=== PATIENT | male | born 1965 | race Caucasian/White ===

== ENCOUNTER 2018-05-17 01:36 | Outpatient (CLI) | payer MEDICARE, SELFPAY ==
[2018-05-17 13:13] LABS: HCT 40.6 % (40.0-50.0); HGB 13.6 g/dL (13.5-17.5); Mean Corp. HGB Concentration 33.5 g/dL (32.0-36.0); Mean Corpuscular Hemoglobin 35.6 pg (27.0-33.0); Mean Platelet Volume 10.2 fL (8.0-11.0); Platelet Count 123 x1000/uL (130-400); RBC 3.82 m/cumm (4.50-6.00); RBC Distribution Width 14.4 % (11.8-14.1); White Blood Cell Count 9.57 k/cumm (4.4-10.8)
[2018-05-17 13:29] LABS: Mean Corpuscular Volume 106.3 fL (80-95)
[2018-05-17 13:45] LABS: Iron 102 ug/dL (50-175)
[2018-05-17 14:00] LABS: Ferritin 719 ng/mL (8-388); Magnesium 1.3 mg/dL (1.8-2.4); TSH (W/Ref FT4) 10.53 uIU/mL (0.358-3.74)
[2018-05-17 14:37] LABS: FREE T4 0.83 ng/dL (0.76-1.46)
== END 2018-05-17 01:56 ==
PROVIDERS: PCP Family Medicine; Visit Provider Family Medicine
DX: D64.9 Anemia, unspecified (principal); E03.9 Hypothyroidism, unspecified
CPT/HCPCS: 36415; 85027; 82565; 82728; 83540; 83735; 84439; 84443

== ENCOUNTER 2018-06-20 01:28 | Outpatient (CLI) | payer MEDICARE, SELFPAY ==
[2018-06-20 13:21] LABS: Magnesium 1.6 mg/dL (1.8-2.4)
== END 2018-06-20 01:48 ==
PROVIDERS: PCP Family Medicine; Visit Provider Family Medicine
DX: K21.9 Gastro-esophageal reflux disease without esophagitis (principal)
CPT/HCPCS: 36415; 83735

== ENCOUNTER 2019-01-21 10:08 | Emergency (ER) | payer MEDICARE, SELFPAY ==
[2019-01-21 10:11] VITALS: BP 162/112; PULSE 75; RESP 12; TEMP 36.3; O2SAT 98
[2019-01-21] MEDS: Lidocaine 2% Viscous 15 ML CUP PO (10:53)
--- NOTE | 2019-01-21 11:06 | NUR.NOTE ---
Animal bite form faxed to [facility] Clerk's Office, called the Health Officer Sherine Michel [phone] and left msg.Nursing Note:
--- NOTE | 2019-01-21 11:53 | W.ED.GENAD ---
Discharge Plan Disposition Patient Disposition: HOME Condition: Stable Discharge Details Chief Complaint: AnimalBite Clinical Impression: Dog bite, Laceration of face Primary Care Provider: Elias Mattson ED Provider: Sonja Everett Home Meds and New Rx's Prescriptions: New amoxicillin-pot clavulanate [Augmentin] 875-125 mg tablet 1 tab PO BID Qty: 9 RF: 0 Continued sertraline 100 mg tablet 100 - 200 mg PO DAILY Qty: 135 RF: 3 multivitamin [Daily Vitamin] 1 EACH tablet 1 tab PO DAILY RF: 0 OCUVITE TABLET 1 EACH tablet 1 tab PO DAILY Qty: 90 RF: 4 cholecalciferol (vitamin D3) 50,000 UNIT capsule 50,000 unit PO monthly Qty: 3 RF: 4 thiamine mononitrate (vit B1) 100 MG tablet 100 mg PO DAILY Qty: 90 RF: 3 omeprazole 40 mg capsule,delayed release(DR/EC) 40 mg PO DAILY Qty: 90 RF: 0 magnesium oxide 400 mg (241.3 mg magnesium) tablet 400 mg PO BID Qty: 180 RF: 3 levothyroxine 125 mcg tablet 125 mcg PO DAILY Qty: 90 RF: 0 Phospha 250 Neutral 250 MG tablet 250 mg PO QID RF: 0 Discharge Instructions Instructions: Amoxicillin/Clavulanate Potassium (By mouth), Animal Bite (ED), Facial Laceration (ED) Additional Instructions: Please return immediately to the emergency department if you develop any new or worsening symptoms or if you become otherwise concerned. It is extremely important that you call as soon as possible to make an appointment to be seen in follow-up for this visit by your primary care doctor. You will need to have your stitches removed in 5 days. You can have this done at your primary care doctor's office, or if you are unable to see your primary care doctor you may return to the emergency department and we will remove your stitches. Referrals: Elias Mattson [Primary Care Provider] - Medical Decision Making Guy Marrero is a 53-year-old man with a history of alcohol use disorder, BPH, hypothyroidism presented to the emergency department 18 hours after sustaining provoked dog bite to right lower lip from vaccinated pet beagle. On exam patient with stellate laceration to the right lower lip at the [place] border, scant oozing, wound is not through and through. Exam is otherwise benign. Concern for complicated laceration at the [place] border, now more than 12 hours from time of injury. Concern for significant risk of scarring and infection. I had a lengthy discussion with the patient regarding improved outcomes were patient to see plastic surgeon at another facility and explained the risks of worse cosmetic outcome and infection. Patient verbalizes understanding of the risks of having wound repaired here at [facility], and adamantly declines consultation with plastic surgery for transfer to another facility. Patient states I just want this done as soon as possible. Also concern for possible metabolic/lyte derangement given that patient has been off his medications including his thyroid medication and magnesium since August, I recommended IV placement and blood draw. Patient refuses blood draw or IV placement, states that he plans to see Dr. Mattson within the next 1 to 2 weeks to get started on his medications again and have his blood drawn at that time. I explained the risks of not undergoing further evaluation here including , permanent disability, patient verbalized understanding the risks and continues to refuse further testing. Right mental block performed. Wound irrigated copiously under pressure. Laceration repaired without complication, please see procedure note. Patient given Augmentin. I had a lengthy discussion with the patient regarding wound care and home care, return to emergency department precautions including red flags for which to return to the emergency department, and importance of outpatient follow-up with his primary care doctor for a general visit in addition to having his stitches removed in 5 days. Patient verbalized understanding of the plan and was amenable. All questions were answered. Patient was discharged home with clear plan for outpatient follow-up. Medical Records Medical records reviewed: Yes I reviewed the patient's medical records. HPI General Mode of arrival: ambulatory. Date/Time Provider Initiated Documentation: 01/21/19 10:14. Limitations to Documentation: no limitations. Information obtained by: patient, RN notes reviewed and old records reviewed. HPI Narrative: Guy Marrero is a 53 y/o man with history of hypothyroidism, BPH, alcohol use disorder presenting to the emergency department with dog bite. Patient is accompanied by his friend who is the sr[employer] system administrator of the dog. They state that patient's friend owns a 15-year-old beagle who has very poor eyesight. They state that patient was laying on the ground with the beagle, when the vehicle became startled and bit the patient in his lower lip. This occurred at approximately 9:00 last night, and now 13 hours ago. Patient did not seek care at the time, but was encouraged to come into the emergency department by his friend because wound was continuing to ooze blood. Patient reports that he had no other injury. Patient's friend reports that dog is vaccinated. Patient reports pain in his lower lip at the site of the wound, and denies any other symptoms. Was previously in his usual state of health. Patient reports that his last tetanus shot was within the past 10 years. Patient notes that he has not been taking any of his medications since August 2018, but he plans to see his primary care doctor, Dr. Mattson, within the next week or 2 and get restarted on his medications. Related Data Home Medications Medication Instructions Recorded Confirmed multivitamin [Daily Vitamin] 1 tab PO DAILY 07/03/13 05/28/18 Phospha 250 Neutral 250 mg PO QID tab 11/07/16 05/28/18 cholecalciferol (vitamin D3) 50,000 unit PO monthly #3 01/17/17 05/28/18 thiamine mononitrate (vit B1) 100 mg PO DAILY #90 tab 01/17/17 05/28/18 omeprazole 40 mg capsule,delayed 40 mg PO DAILY #90 tab-cap 05/01/18 05/28/18 release levothyroxine 125 mcg tablet 125 mcg PO DAILY #90 tab-cap 05/18/18 01/21/19 magnesium oxide 400 mg (241.3 mg 400 mg PO BID #180 tab 05/18/18 01/21/19 magnesium) tablet sertraline 100 mg tablet 100 - 200 mg PO DAILY #135 tab-cap 05/28/18 01/21/19 amoxicillin-pot clavulanate 1 tab PO BID #9 tab 01/21/19 [Augmentin] Previous Rx's Medication Instructions Recorded Phospha 250 Neutral 250 mg PO QID tab 11/07/16 thiamine mononitrate (vit B1) 100 mg PO DAILY #90 tab 01/17/17 omeprazole 40 mg capsule,delayed 40 mg PO DAILY #90 tab-cap 05/01/18 release levothyroxine 125 mcg tablet 125 mcg PO DAILY #90 tab-cap 05/18/18 magnesium oxide 400 mg (241.3 mg 400 mg PO BID #180 tab 05/18/18 magnesium) tablet sertraline 100 mg tablet 100 - 200 mg PO DAILY #135 tab-cap 05/28/18 amoxicillin-pot clavulanate 1 tab PO BID #9 tab 01/21/19 [Augmentin] Allergies Allergy/AdvReac Type Severity Reaction Status Date / Time No Known Allergies Allergy Unverified 01/21/19 10:17 General Stated Complaint: AnimalBite JALIL: 3 Review of Systems Narrative: Constitutional: denies fevers Eyes: denies eye pain ENT: denies facial pain, dental pain, sore throat Cardiovascular: denies chest pain Respiratory: denies SOB, cough GI: denies abdominal pain, vomiting, diarrhea : denies flank pain MSK: denies back pain, neck pain, arthralgias, myalgias Skin: denies rash, reports wound to right lower lip as per HPI Neuro: denies headaches, numbness PFSH Surgical History (Updated 09/24/18 @ 12:35 by Michele Stinson) Repair, Tendon or Muscle (~2005) LEFT FINGER Family History Mother Diabetes Hyperlipidemia Father Personal history of malignant neoplasm Throat Sister Multiple sclerosis Brother No problems noted. Grandfather Heart disease Grandmother No problems noted. Social History Smoking/Tobacco Use Status: Current-Occasional Tobacco Type: cigarettes Alcohol Intake: current Alcohol Intake frequency: 0-2 drinks per day Alcohol type: hard liquor Drug use: Never Substance use type: does not use Do you feel safe at home: Yes Do you feel safe in your relationship?: Yes Exam Narrative Exam Narrative: Constitutional: well and [id number], pleasant, conversing normally HENT: head atraumatic/normocephalic/normal inspection, mucous membranes moist. Stellate 3 cm laceration to the right lip with center of laceration falling at the [place]mil[place] border. No apparent contamination, deep structures intact. Inner mucosa normal, wound is not through and through. No intraoral lesion, normal examination of the oropharynx. No bony tenderness of the mandible or maxilla. Dentition intact. Eyes: conjunctiva normal, sclera normal, pupils 3mm b/l Neck: no stridor, normal ROM, trachea midline Resp: normal work of breathing, LCTAB Cardio: normal rate, normal rhythm, no murmur appreciated Skin: warm, dry, normal color, no rash Neuro: alert, not altered, grossly non-focal, normal tone Ext: no edema, moving all extremities equally. Psych: normal mood, normal affect, normal behavior Course Vital Signs Vital signs: Vital Signs Temperature 36.3 C L 01/21/19 10:11 Pulse 75 01/21/19 10:11 Respiratory Rate 12 01/21/19 10:11 Blood Pressure 162/112 H 01/21/19 10:11 Pulse Oximetry 98 01/21/19 10:11 Temperature 36.3 C L 01/21/19 10:11 Temperature Source Temporal Artery Scan 01/21/19 10:11 Pulse 75 01/21/19 10:11 Respiratory Rate 12 01/21/19 10:11 Respiratory Effort Non-Labored 01/21/19 10:13 Blood Pressure 162/112 H 01/21/19 10:11 Blood Pressure Position Sitting 01/21/19 10:11 Pulse Oximetry 98 01/21/19 10:11 Oxygen Delivery Method Room Air 01/21/19 10:11 Oxygen Flow Rate 0 01/21/19 10:11 Pain Level 8 01/21/19 10:11 Procedures Laceration Laceration 1: Site: lip Side (If applicable): right Size (cm): 3 Description: stellate Depth: simple, single layer Local Anesthetic: Lidocaine 1% Amount of anesthesia used (mL): 0.5 Pre-repair: wound explored, irrigated extensively (Wound irrigated copiously under pressure, no apparent contamination) and deep structures intact Skin layer closed with: other (Prolene) Size (cm): 5-0 Number of sutures: 6 Technique: simple, interrupted Nerve Block Nerve Block 1: Time out performed: Yes Local Anesthetic: Lidocaine 1% Amount of anesthesia used (mL): 3 Side: right Intraoral Nerve Block: mental Procedure Successful: Yes Patient Tolerated Procedure: well Complications: inadequate anesthesia Additional Comments: Patient required 0.5 cc additional lidocaine into lower wound flap to achieve adequate anesthesia
[2019-01-21] MEDS: Amoxicillin 875/Clav. 125 TAB PO (11:54)
[2019-01-21] MEDS: Bacitracin 30 GM TUBE TP (11:56)
== END 2019-01-21 12:02 | disposition home or self-care (01) ==
LOC: ER 11:59
PROVIDERS: Emergency Provider Student in an Organized Health Care Education/Training Program; PCP Family Medicine
DX: S01.551A Open bite of lip, initial encounter (principal); W54.0XXA Bitten by dog, initial encounter; Z91.128 Patient's intentional underdosing of medication regimen for other reason
CPT/HCPCS: 12013; 64402

== ENCOUNTER 2019-01-27 09:22 | Emergency (ER) | payer MEDICARE, SELFPAY ==
[2019-01-27 09:26] VITALS: BP 156/108; PULSE 74; RESP 16; TEMP 36.2; O2SAT 98
--- NOTE | 2019-01-27 10:19 | ED.GENADUL_ITS ---
Discharge Plan Disposition Patient Disposition: HOME Condition: Improving Discharge Details Chief Complaint: SutureRem Clinical Impression: Encounter for removal of sutures Primary Care Provider: Elias Mattson ED Provider: Caesar Liu Home Meds and New Rx's Prescriptions: No Action sertraline 100 mg tablet 100 - 200 mg PO DAILY Qty: 135 RF: 3 OCUVITE TABLET 1 EACH tablet 1 tab PO DAILY Qty: 90 RF: 4 levothyroxine 125 mcg tablet 125 mcg PO DAILY Qty: 90 RF: 0 Phospha 250 Neutral 250 MG tablet 250 mg PO QID RF: 0 Discharge Instructions Additional Instructions: 1. Drink plenty of fluids. 2. Continue all medications as prescribed. 3. Acetaminophen 1000mg every 4 hours (up to 5 time a day) and/or ibuprofen 600mg every 6 hours as needed for fever or pain. 4. Continue applying bacitracin to wound edges. 5. Follow-up with your doctor for evaluation of your blood pressure. Return to the Emergency Department (ED) if your condition worsens, does not improve as expected, or for ANY other concerns. Specifically, return if you have new or uncontrolled pain, worsening fever, difficulty breathing, vomiting, or are unable to drink fluids. Medical Decision Making 51-year-old gentleman presents for wound evaluation and suture removal. Wound subjectively improved in terms of pain and soft tissue swelling according to patient and his partner. Exam significant for well approximated wound edges with no evidence of acute infection. Sutures removed without complication. Patient has had elevated blood pressure during both of his ED visits and has been noncompliant with his levothyroxine. Discharge the prior outpatient follow-up with his PCP. Given usual and customary return instructions prior to discharge. HPI 54-year-old gent with a history of hypothyroidism and tobacco use. Is noncompliant with his levothyroxine. Presents for evaluation of a recent wound repair and suture removal. was presented here on 01/21 after sustaining a s tellate laceration to his right lower lip from a dog bite. His wound was repaired without complication and he has been applying bacitracin to his wound edges daily. He notes improved pain and reduced swelling over the past 5 days. He denies any fever/chills, hypopharyngeal swelling, or other constitutional complaints. Of note, he had measured hypertension during his last ED visit had a somewhat elevated blood pressure today. Denies chest pain, palpitations, dyspnea, exertional fatigue, or lower extremity edema. General Date/Time Provider Initiated Documentation: 01/27/19 09:42 . Related Data Home Medications Medication Instructions Recorded Confirmed Phospha 250 Neutral 250 mg PO QID tab 11/07/16 01/27/19 levothyroxine 125 mcg tablet 125 mcg PO DAILY #90 tab-cap 05/18/18 01/27/19 sertraline 100 mg tablet 100 - 200 mg PO DAILY #135 tab-cap 05/28/18 01/27/19 Previous Rx's Medication Instructions Recorded Phospha 250 Neutral 250 mg PO QID tab 11/07/16 levothyroxine 125 mcg tablet 125 mcg PO DAILY #90 tab-cap 05/18/18 sertraline 100 mg tablet 100 - 200 mg PO DAILY #135 tab-cap 05/28/18 Allergies Allergy/AdvReac Type Severity Reaction Status Date / Time No Known Allergies Allergy Unverified 01/27/19 09:31 General Stated Complaint: SutureRem JALIL: 5 Review of Systems All systems reviewed & are unremarkable except as noted in HPI and below PFSH Surgical History Repair, Tendon or Muscle (~2005) LEFT FINGER Family History Mother Diabetes Hyperlipidemia Father Personal history of malignant neoplasm Throat Sister Multiple sclerosis Brother No problems noted. Grandfather Heart disease Grandmother No problems noted. Social History Smoking/Tobacco Use Status: Current-Occasional Tobacco Type: cigarettes Alcohol Intake: current Alcohol Intake frequency: 0-2 drinks per day Alcohol type: hard liquor Drug use: Never Substance use type: does not use Do you feel safe at home: Yes Do you feel safe in your relationship?: Yes Exam Narrative Exam Narrative: Nursing note and vital signs have been reviewed and noted. GENERAL: alert, active, no acute distress, well -hydrated, well-nourished HEENT: atraumatic/normocephalic, PERRLA, EOMI, conjunctiva clear, external ears/canals normal, nasal mucosa normal NECK: supple, full range of motion CARDIOVASCULAR: nl pulses, no edema PULMONARY: nl effort, no audible wheezing or stridor ABDOMEN: non-distended EXTREMITY: normal muscle tone, all joints with FROM, no deformity NUERO: normal mentation, moving all extremities, normal stance and gait, PSYCH: alert and oriented SKIN: Stellate laceration to the left lower lip through the [place]mil[place] border with well approximated wound edges. There is mild soft tissue swelling with minimal tenderness. 6 simple interrupted Prolene sutures are in place Course Vital Signs Vital signs: Vital Signs Temperature 97.2 F L 01/27/19 09:26 Pulse 74 01/27/19 09:26 Respiratory Rate 16 01/27/19 09:26 Blood Pressure 156/108 H 01/27/19 09:26 Pulse Oximetry 98 01/27/19 09:26 Temperature 97.2 F L 01/27/19 09:26 Temperature Source Skin 01/27/19 09:26 Pulse 74 01/27/19 09:26 Respiratory Rate 16 01/27/19 09:26 Respiratory Effort Non-Labored 01/27/19 09:30 Blood Pressure 156/108 H 01/27/19 09:26 Blood Pressure Position Sitting 01/27/19 09:26 Pulse Oximetry 98 01/27/19 09:26 Oxygen Delivery Method Room Air 01/27/19 09:26 Oxygen Flow Rate 0 01/27/19 09:26 Comment 01/27/19 09:26 Procedures Other Description: Suture removal. 6 simple interrupted Prolene sutures removed using forceps, scissors, and a scalpel without complication. No significant bleeding, discharge, or wound dehiscence associated with the procedure.
== END 2019-01-27 09:47 | disposition home or self-care (01) ==
PROVIDERS: Emergency Provider Emergency Medicine; PCP Family Medicine
DX: S01.01XD Laceration without foreign body of scalp, subsequent encounter (principal); W54.0XXD Bitten by dog, subsequent encounter; Z48.02 Encounter for removal of sutures

== ENCOUNTER 2020-01-16 01:52 | Outpatient (CLI) | payer MEDICARE, SELFPAY ==
[2020-01-16 13:12] LABS: Calculated LDL 68 mg/dL (<100); Cholesterol 182 mg/dL (<200); HDL Cholesterol 99 mg/dL (40-60); Magnesium 1.4 mg/dL (1.8-2.4); TSH (W/Ref FT4) 12.36 uIU/mL (0.36-3.74); Triglyceride 75 mg/dL (<150)
[2020-01-16 13:36] LABS: FREE T4 0.85 ng/dL (0.76-1.46)
== END 2020-01-16 02:12 ==
PROVIDERS: PCP Family Medicine; Visit Provider Family Medicine
DX: E03.9 Hypothyroidism, unspecified (principal); E83.42 Hypomagnesemia; E78.5 Hyperlipidemia, unspecified
CPT/HCPCS: 36415; 80061; 83735; 84439; 84443

== ENCOUNTER 2020-05-20 04:04 | Outpatient (CLI) | payer MEDICARE, SELFPAY ==
[2020-05-20 10:13] LABS: HCT 37.6 % (40.0-50.0); HGB 12.7 g/dL (13.5-17.5); MCHC 33.8 % (32.0-36.0); MCV 106.5 fL (80-95); MPV 9.1 fL (8.0-11.0); RBC 3.53 10^6/uL (4.36-5.78); RDW-SD 54.3 fL; WBC 7.35 10^3/uL (4.4-10.8)
[2020-05-20 10:37] LABS: Platelet Count 99 10^3/uL (130-400)
[2020-05-20 10:56] LABS: ALT 66 U/L (16-63); AST 175 U/L (15-37); Albumin 4.1 g/dL (3.4-5.0); Alkaline Phosphatase 83 U/L (46-116); Anion Gap 13.8 mmol/L (3-11); BUN 12 mg/dL (7-18); Bilirubin, Total 0.7 mg/dL (0.2-1.0); CO2 26.2 mmol/L (21.0-32.0); CREATININE 1.1 mg/dL (0.70-1.30); Calcium 8.9 mg/dL (8.5-10.1); Chloride 101 mmol/L (98-107); Glucose 89 mg/dL (74-106); Potassium 3.9 mmol/L (3.5-5.1); Sodium 141 mmol/L (136-145); Total Protein 8.6 g/dL (6.4-8.2)
== END 2020-05-20 04:05 | disposition home or self-care (01) ==
LOC: LBO 04:04
PROVIDERS: PCP Family Medicine; Visit Provider Family Medicine
DX: D64.9 Anemia, unspecified (principal); R10.9 Unspecified abdominal pain
CPT/HCPCS: 36415; 80053; 85027

== ENCOUNTER 2020-05-21 09:29 | Outpatient (REF) | payer MEDICARE, SELFPAY ==
[2020-05-22 09:00] LABS: GGT 567 U/L (15-85); Magnesium 1.5 mg/dL (1.8-2.4)
[2020-05-24 09:59] LABS: PSA, Screening 0.8 ng/mL (0.0-3.5)
== END 2020-05-21 09:30 | disposition home or self-care (01) ==
LOC: LBN 09:29
PROVIDERS: PCP Family Medicine; Visit Provider Family Medicine
DX: E83.42 Hypomagnesemia (principal); F10.10 Alcohol abuse, uncomplicated; N40.1 Benign prostatic hyperplasia with lower urinary tract symptoms; Z12.5 Encounter for screening for malignant neoplasm of prostate
CPT/HCPCS: 84153; 82977; 83735

== ENCOUNTER 2020-09-01 18:32 | Inpatient (IN) | payer MEDICARE, SELFPAY ==
[2020-09-01] VITALS (70 sets, daily range): BP systolic 53–92; BP diastolic 37–65; PULSE 57–92; RESP 13–27; TEMP 36–36.1; O2SAT 93–100
--- NOTE | 2020-09-01 18:34 | W.ED.GENAD ---
Discharge Plan Disposition Patient Disposition: [facility] INPATIENT Condition: Serious Discharge Details Clinical Impression: Hypotension, Dehydration, Alcohol abuse, Acute kidney injury, Hypokalemia Admit Date/Time: 09/01/20 21:37 Admit Provider: Chino Bravo Attending Provider: Chino Bravo Primary Care Provider: Elias Mattson. ED Provider: Kavya Park Discharge Data Discharge Date/Time-TO BE ENTERED AT DEPARTURE: 09/01/20 23:05 Medical Decision Making 1839 -- 55-year-old male with a history of chronic alcohol abuse presents for generalized weakness, dizziness and lack of appetite for the past 5 days. Last alcohol use yesterday. Had been drinking up to 10 whiskeys daily. Blood pressure 83/53. He appears generally unwell but nontoxic. Differential diagnosis includes sepsis, dehydration, electrolyte abnormality, pneumonia, UTI. Will place IV, bolus IV fluids, screening labs, CT chest abdomen pelvis to rule out mass or other acute process and obtain urinalysis. 2229 -- Labs and imaging reviewed. White blood cell count 21. Hemoglobin 8.6, he has been as low as 2.4 in 2017. Guaiac done at bedside which noted brown stool but is guaiac positive. MCV and and Ch elevated, c/w macrocytic anemia which may be associated with etoh. Normal lactate 1.4. Potassium 2.9, will replete. Cr 2.4, increased fromn 1.1. TSH 9. Free T4 normal at 1. Alcohol level negative. CT chest notes 5x3mm LLL nodule but no acute disease. CT abdomen/pelvis negative for acute disease. Case discussed with hospitalist accepts patient for admission. 2219 --Patient has continued to have low blood pressure readings, with systolic as low as 50s to 60s. Blood pressure now 92/63. He appears to be fluid responsive. Will consider central line placement for pressors if systolic blood pressure remains in 70s to low 80s. Urinalysis negative for infection. As there does not appear to be an acute source at this time, do not see an indication for antibiotics. Rapid Covid pending. 2349 --BP 89/57 before transfer to the floor. Medical Records Medical records reviewed: Yes I reviewed the patient's medical records. Imaging Data Radiologic Study: Radiologist's impression: 09/01/20 21:47 Blood Blood Culture - Pending 09/01/20 21:24 Blood Blood Culture - Pending Laboratory Tests Range/Units 09/01/20 09/01/20 09/01/20 18:54 18:54 18:54 WBC (4.4-10.8) 10^3/uL 21.64 H RBC (4.36-5.78) 10^6/uL 2.43 L Hgb (13.5-17.5) g/dL 8.6 L Hct (40.0-50.0) % 25.0 L MCV (80-95) fL 102.9 H MCH (27.0-33.0) pg 35.4 H MCHC (32.0-36.0) % 34.4 RDW (11.8-14.1) % 14.8 H Plt Count (130-400) 10^3/uL 283 MPV (8.0-11.0) fL 10.8 Immature Gran % 1.3 Neutrophils % 80.2 Lymphocytes % 9.1 Monocytes % 7.5 Eosinophils % 1.2 Basophils % 0.7 Nucleated RBC % % 0 Absolute Neutrophils (1.2-6.7) 10^3/uL 17.36 H Absolute Lymphocytes (1.2-3.4) 10^3/uL 1.97 Absolute Monocytes (0.1-0.8) 10^3/uL 1.62 H Absolute Eosinophils (0.0-0.7) 10^3/uL 0.26 Absolute Basophils (0.0-0.2) 10^3/uL 0.15 VBG Lactate (0.6-1.4) mmol/L Sodium (136-145) mmol/L 132 L Potassium (3.5-5.1) mmol/L 2.9 L Chloride (98-107) mmol/L 91 L Carbon Dioxide (21.0-32.0) mmol/L 23.0 Anion Gap (3-11) mmol/L 18.0 H BUN (7-18) mg/dL 32 H Creatinine (0.70-1.30) mg/dL 2.4 H Estimated GFR/1.73 m2 (mL/min/1.73m2) 28.04 Glucose (74-106) mg/dL 139 H Calcium (8.5-10.1) mg/dL 9.6 Total Bilirubin (0.2-1.0) mg/dL 0.9 AST (15-37) U/L 71 H ALT (16-63) U/L 25 Alkaline Phosphatase (46-116) U/L 82 Total Protein (6.4-8.2) g/dL 8.3 H Albumin (3.4-5.0) g/dL 3.8 Lipase (73-393) U/L 155 Ethyl Alcohol (<3) mg/dL < 3.0 Range/Units 09/01/20 21:47 WBC (4.4-10.8) 10^3/uL RBC (4.36-5.78) 10^6/uL Hgb (13.5-17.5) g/dL Hct (40.0-50.0) % MCV (80-95) fL MCH (27.0-33.0) pg MCHC (32.0-36.0) % RDW (11.8-14.1) % Plt Count (130-400) 10^3/uL MPV (8.0-11.0) fL Immature Gran % Neutrophils % Lymphocytes % Monocytes % Eosinophils % Basophils % Nucleated RBC % % Absolute Neutrophils (1.2-6.7) 10^3/uL Absolute Lymphocytes (1.2-3.4) 10^3/uL Absolute Monocytes (0.1-0.8) 10^3/uL Absolute Eosinophils (0.0-0.7) 10^3/uL Absolute Basophils (0.0-0.2) 10^3/uL VBG Lactate (0.6-1.4) mmol/L 1.4 Sodium (136-145) mmol/L Potassium (3.5-5.1) mmol/L Chloride (98-107) mmol/L Carbon Dioxide (21.0-32.0) mmol/L Anion Gap (3-11) mmol/L BUN (7-18) mg/dL Creatinine (0.70-1.30) mg/dL Estimated GFR/1.73 m2 (mL/min/1.73m2) Glucose (74-106) mg/dL Calcium (8.5-10.1) mg/dL Total Bilirubin (0.2-1.0) mg/dL AST (15-37) U/L ALT (16-63) U/L Alkaline Phosphatase (46-116) U/L Total Protein (6.4-8.2) g/dL Albumin (3.4-5.0) g/dL Lipase (73-393) U/L Ethyl Alcohol (<3) mg/dL CT Chest Without Contrast; Diagnostic Exam date and time: 09/01/2020 7:51 PM Age: 55 years old Clinical indication: Other: Generalized weakness, dehydration, R/O pna, mass; Additional info: PT had difficulty holding breath TECHNIQUE: Imaging protocol: Diagnostic computed tomography of the chest without contrast. Radiation optimization: All CT scans at this facility use at least one of these dose optimization techniques: automated exposure control; mA and/or kV adjustment per patient size (includes targeted exams where dose is matched to clinical indication); or iterative reconstruction. COMPARISON: CR CHEST 2 VIEWS PA,LAT 11/15/2016 8:52 AM FINDINGS: Lungs: There is mild central peribronchial thickening. There is no bronchiectasis or bronchiolectasis. There is mild mucus within the central airways. There are scattered regions of mild tree-in-bud opacities suggesting mild infectious small airways disease. There is a 5 x 3 mm left lower lobe nodule on image 470, series 6. There are scattered regions of mild pleuroparenchymal scarring. Incidentally noted is a tracheal bronchus on the right supplying part of the right upper lobe. Pleural spaces: There are no pleural effusions present. Heart: Heart size is normal. There is no pericardial effusion. Aorta: There is mild atherosclerotic calcification of the thoracic aorta without aneurysm formation. Lymph nodes: Unremarkable. No enlarged lymph nodes. Bones/joints: Unremarkable. No acute fracture. Soft tissues: Unremarkable. IMPRESSION: 1. Findings of mild airways disease, as described above, which may be chronic. 2. 5 x 3 mm left lower lobe nodule, indeterminate. For patients at low risk (minimal or absent history of smoking and of other known risk factors), no routine follow-up is indicated. For patients at high risk (history of smoking or of other known risk factors), consider optional CT Chest at 12 months. (Reference: [facility]) CT Abdomen And Pelvis Without Contrast Exam date and time: 09/01/2020 7:51 PM Age: 55 years old Clinical indication: Other: Generalized weakness, dehydration, R/O pna, mass; Additional info: PT had difficulty holding breath TECHNIQUE: Imaging protocol: Computed tomography of the abdomen and pelvis without contrast. Radiation optimization: All CT scans at this facility use at least one of these dose optimization techniques: automated exposure control; mA and/or kV adjustment per patient size (includes targeted exams where dose is matched to clinical indication); or iterative reconstruction. COMPARISON: CR CHEST 2 VIEWS PA,LAT 11/15/2016 8:52 AM FINDINGS: Liver: Normal. No mass. Gallbladder and bile ducts: There are tiny dependent hyperdensities within the gallbladder consistent with tiny gallstones. There is no clear evidence for acute cholecystitis. There is no biliary ductal dilatation. Pancreas: The pancreas is moderately atrophic but appears otherwise unremarkable without focal lesion or evidence of acute inflammation. Spleen: Normal. No splenomegaly. Adrenal glands: Normal. No mass. Kidneys and ureters: No renal or ureteral stones are identified. There is no hydronephrosis or hydroureter. Stomach and bowel: There are few prominent air-filled loops of small bowel without transition point, which may represent ileus. There is no evidence for bowel obstruction. There is no evidence for bowel inflammation. Appendix: No evidence of appendicitis. Intraperitoneal space: Unremarkable. No free air. No significant fluid collection. Vasculature: The aorta and iliac arteries demonstrate moderate atherosclerotic calcification without aneurysm formation. Lymph nodes: Unremarkable. No enlarged lymph nodes. Urinary bladder: No bladder stones are identified. Reproductive: Unremarkable as visualized. Bones/joints: There is moderate degenerative disc disease at L4-L5 with more mild spondylosis at multiple lower thoracic and upper lumbar levels. There is moderate facet arthrosis of the lower lumbar spine. There is bilateral spondylolysis at L5-S1 with grade 1 anterolisthesis at this level. There are multiple mild anterior wedge compression deformities of lower thoracic and upper lumbar vertebra which appear chronic. Soft tissues: Unremarkable. IMPRESSION: 1. No acute process within the abdomen or pelvis identified. 2. No masses or adenopathy. 3. Tiny gallstones. No clear evidence for acute cholecystitis. If this is clinically suspected, abdominal ultrasound could be obtained. Lab Data Lab results reviewed: Yes I reviewed the patient's lab results. HPI General Mode of arrival: ambulatory. Date/Time Provider Initiated Documentation: 09/01/20 18:33. Limitations to Documentation: no limitations. Information obtained by: patient. HPI Narrative: Patient is a 55-year-old male who presents to the ED with a complaint of generalized weakness, poor appetite, dizziness for the past 5 days. Patient states he has been drinking 10 whiskeys daily up until a few days ago. He states his last alcoholic drink was yesterday. He states he has been able to ambulate on his own but feels very weak. He denies any fever, headache, chest pain, shortness of breath, abdominal pain, nausea, vomiting, diarrhea, urinary symptoms. Related Data Home Medications Medication Instructions Recorded Confirmed levothyroxine 125 mcg tablet 125 mcg PO DAILY #90 tab-cap 05/18/18 09/01/20 sertraline 100 mg tablet 100 mg PO DAILY #90 tab-cap 01/09/20 09/01/20 vitamin E 200 unit capsule 200 unit PO DAILY #90 cap 01/09/20 09/01/20 multivitamin 1 tab PO DAILY 02/27/20 09/01/20 Previous Rx's Medication Instructions Recorded levothyroxine 125 mcg tablet 125 mcg PO DAILY #90 tab-cap 05/18/18 sertraline 100 mg tablet 100 mg PO DAILY #90 tab-cap 01/09/20 vitamin E 200 unit capsule 200 unit PO DAILY #90 cap 01/09/20 Allergies Allergy/AdvReac Type Severity Reaction Status Date / Time No Known Allergies Allergy Verified 09/01/20 18:48 General JALIL: 5 Review of Systems All systems reviewed & are unremarkable except as noted in HPI and below Constitutional Constitutional: Reports as per HPI, Denies chills, Reports fatigue, Denies fever(s) and Reports poor appetite Eyes Eyes: Denies blurry vision ENT Ears, Nose, Mouth, and Throat: Denies dizziness, Denies sore throat and Denies throat swelling Cardiovascular Cardiovascular: Denies chest pain and Denies dyspnea Respiratory Respiratory: Denies cough and Denies dyspnea Gastrointestinal Gastrointestinal: Denies abdominal pain, Denies diarrhea and Denies vomiting Genitourinary Genitourinary: Denies hematuria and Denies dysuria Musculoskeletal Musculoskeletal: Denies back pain and Denies numbness Integumentary/Breasts Skin/Breast: Denies lesions and Denies rash Neurologic Neurologic: Denies dizziness, Denies localized weakness and Denies numbness Endocrine Endocrine: Reports fatigue Allergic/Immunologic Allergic/Immunologic: Denies throat swelling [facility] Medical History Alcohol abuse Anemia Depression Essential hypertension Hypothyroidism (11/15/12) Optic neuropathy Smoker Surgical History Repair, Tendon or Muscle (~2005) LEFT FINGER Family History Mother Diabetes Hyperlipidemia Father Personal history of malignant neoplasm Throat Sister Multiple sclerosis Brother No problems noted. Grandfather Heart disease Grandmother No problems noted. Social History Smoking/Tobacco Use Status: Current-Occasional Tobacco Type: cigarettes Years smoked: 35 Smoking risk assessment performed?: Yes Alcohol Intake: current Alcohol Intake frequency: 0-2 drinks per day Alcohol type: hard liquor Drug use: Never Substance use type: does not use Do you feel safe at home: Yes Do you feel safe in your relationship?: Yes Exam Const General: cooperative, no acute distress and ill appearing chronically Orientation: alert, awake and oriented x3 HENMT Head: normal to inspection Face and sinus: normal facial exam Eyes General: appearance normal, both eyes and all related structures EOM: EOM intact bilaterally Neck Neck: normal visual inspection and No submandibular swelling Lymphatic: no lymphadenopathy noted Chest Chest: normal inspection of the chest and no tenderness Resp Effort & Inspection: normal respiratory effort and able to speak in complete sentences Auscultation: clear to auscultation bilaterally Cardio Rate: regular rate Rhythm: regular rhythm GI Inspection: normal to inspection Palpation: soft, not firm, not rigid and nontender Auscultation: normal bowel sounds Skin General skin exam: no rashes or lesions noted Neuro General: patient alert, patient awake and patient oriented x3 Cognition: normal cognition Speech: speech normal Motor: muscle tone normal throughout Sensory Exam: no sensory deficits noted Extrem General: normal to inspection, full ROM, capillary refill normal, no calf tenderness bilaterally and no edema Psych Appearance: grossly normal Mental Status: mental status grossly normal Speech and Movement: speech and movement normal Affect: normal affect Critical Care Time Critical Care Time Critical Care Time: Yes Total Critical Care Time: 90 Attestation: I spent 90 minutes of critical care time with this patient. This does not include time spent on separately reported billable procedures.
--- NOTE | 2020-09-01 18:45 | RT.EKG_ITS ---
APPROVED REPORT Exam: Resting ECG Reason for Exam: unwell Patient Location: E HR:97 bpm ECG Measurements Heart Rate 97 AXIS OR 165 P 148 QRSd 98 QRS 113 QT 403 T 10 QTc 513 Conclusion Sinus or ectopic atrial rhythm...P axis (-45,135) Right axis deviation...QRS axis (100,269) Prolonged QT interval...QTc >500mS. No STEMI. I have reviewed and interpreted ECG and agree with software generated interpretation.
[2020-09-01] MEDS: Normal Saline 1,000 ML 1000 ML IV ×3 (19:12→20:08)
[2020-09-01 19:20] LABS: Abs Immature Grans 0.28 10^3/uL (0.0-0.06); Absolute Lymphocyte Count 1.97 10^3/uL (1.2-3.4); Absolute Monocyte Count 1.62 10^3/uL (0.1-0.8); Basophils % 0.7; Eosinophils % 1.2; HGB 8.6 g/dL (13.5-17.5); Immature Grans % 1.3; Lymphocytes % 9.1; MCH 35.4 pg (27.0-33.0); MCHC 34.4 % (32.0-36.0); MCV 102.9 fL (80-95); MPV 10.8 fL (8.0-11.0); Monocytes % 7.5; Neutrophils % 80.2; Nucleated RBC 0 %; Platelet Count 283 10^3/uL (130-400); RBC 2.43 10^6/uL (4.36-5.78); RDW 14.8 % (11.8-14.1); RDW-SD 54.4 fL; WBC 21.64 10^3/uL (4.4-10.8)
[2020-09-01 19:24] LABS: ALT 25 U/L (16-63); AST 71 U/L (15-37); Albumin 3.8 g/dL (3.4-5.0); Alkaline Phosphatase 82 U/L (46-116); BUN 32 mg/dL (7-18); Bilirubin, Total 0.9 mg/dL (0.2-1.0); CREATININE 2.4 mg/dL (0.70-1.30); Calcium 9.6 mg/dL (8.5-10.1); Chloride 91 mmol/L (98-107); Estimated GFR 28.04 (mL/min/1.73m2); Glucose 139 mg/dL (74-106); Lipase 155 U/L (73-393); Sodium 132 mmol/L (136-145); Total Protein 8.3 g/dL (6.4-8.2)
[2020-09-01 19:28] LABS: Potassium 2.9 mmol/L (3.5-5.1)
[2020-09-01 19:32] LABS: Absolute Basophil Count 0.15 10^3/uL (0.0-0.2); Absolute Eosinophil Count 0.26 10^3/uL (0.0-0.7); Absolute Neutrophil Count 17.36 10^3/uL (1.2-6.7)
[2020-09-01 19:42] LABS: ETHANOL BLOOD < 3.0 mg/dL (<3)
--- NOTE | 2020-09-01 19:45 | DI.CT_ITS ---
Exam(s) CT CHEST/ABD/PEL WO EXAM: CT CHEST/ABD/PEL WO CLINICAL HISTORY: generalized weakness, dehydration. TECHNIQUE: Imaging Protocol: Axial computed tomography images with coronal and sagittal reformatted images were created and reviewed CONTRAST MATERIAL: Intravenous: none Oral: None COMPARISON: No exams were available for comparison FINDINGS: CHEST: LUNGS: There are no significant focal right lung findings.. In the left lung there is a solitary non calcified nodule which is in the left lower lobe and measures 4 x 3 millimeters. No other nodules no r pleural effusions. No findings in trachea and mainstem bronchi. MEDIASTINUM: No obvious hilar nor mediastinal adenopathy. CARDIAC: Heart size is normal. There is no pericardial effusion.Caliber of the thoracic aorta is wit hin normal limits. OSSEOUS: No significant osseous lesions.. ABDOMEN: Images are somewhat degraded by motion artifact. LIVER: There are no obvious focal hepatic lesions evident of this noninfused study. GALLBLADDER/BILIARY: Subtle layering density in the gallbladder, probably gallstones or hyperdense sl udge. The gallbladder is not distended. No pericholecystic fluid. CBD is not dilated. PANCREAS: No evidence of obvious pancreatic mass nor dilatation of the pancreatic duct. SPLEEN: Spleen size upper normal. No obvious splenic lesions evident on this noninfused study. ADRENALS: There are no significant adrenal masses. KIDNEYS: Findings at lower poles both kidneys are probably exaggerated by motion artifact.. No renal calculi nor hydronephrosis. No solid renal masses. ABDOMINAL AORTA: Abdominal aorta is not enlarged. LYMPH NODES: There is no retroperitoneal nor para-aortic adenopathy. ABDOMINAL WALL/GI: No evidence of signature anterior abdominal wall hernia. No bowel obstruction. PELVIS: LYMPH NODES: There is no intrapelvic nor inguinal adenopathy. GI: No evidence of appendicitis.No evidence of sigmoid diverticulitis. URINARY BLADDER: Uniformly thickened urinary bladder wall. The bladder is not distended. No radiopa que calculi seen within the nondistended bladder lumen. REPRODUCTIVE: Prostate not enlarged. OSSEOUS: There are bilateral pars interarticularis defects at L5 level. There is an element of anter olisthesis of L5 upon S1. There are no lytic nor blastic osseous lesions identified. IMPRESSION: 1. There is a 4 x 3 millimeters solitary noncalcified nodule in the left lower lobe. No other nodule s in either lung field nor pleural effusions nor obvious intrathoracic adenopathy evident on this non infused study. Recommend follow-up chest CT and in 6 months. 2. Probable cholelithiasis. This should be confirmed with ultrasound. No evidence of obvious acute cholecystitis. 3. Uniformly thickened urinary bladder wall although this may be exaggerated by under distension. Bilateral L5 pars defects with mild anterolisthesis L5 upon S1. Also chronic degenerative disc disea se at L4-5 level. RADIATION DOSE DELIVERED: 804.18mGy.cm Total DLP DATA REPOSITORY: All CT scans at this facility are submitted to the National Radiology Data Registry (NRDR) Dose Index Registry (DIR) with the [employer] (A[employer]). RADIATION OPTIMIZATION: All CT scans at this facility use at least one of these dose optimization te chniques: automated exposure control; mA and/or kV adjustment per patient size (includes targeted exa ms where dose is matched to clinical indication); or iterative reconstruction.
[2020-09-01] MEDS: MAGNESIUM SULFATE 8.12 MEQ, MULTIVITAMIN 10 ML, THIAMINE 100 MG, FOLIC ACID 1 MG in Nor... 168.867 MG IV (20:07)
[2020-09-01] MEDS: POTASSIUM CHLORIDE 20 MEQ/100 ML BAG 50 MEQ IVPB (20:08)
[2020-09-01] MEDS: Potassium Chloride 20 MEQ TABCR 40 MEQ PO (20:08)
--- NOTE | 2020-09-01 20:23 | NUR.NOTE ---
Nursing Note: manual BP /right arm 80/58
--- NOTE | 2020-09-01 21:51 | NUR.NOTE ---
Nursing Note: 1854: critical potassium result 2.9. Provider made aware.
--- NOTE | 2020-09-01 21:52 | NUR.NOTE ---
Nursing Note: PT care transferred to Jo Banks (YONAS) at this time. PT stable.
--- NOTE | 2020-09-01 21:58 | DI.VRAD_ITS ---
PROCEDURE INFORMATION: Exam: CT Chest Without Contrast; Diagnostic Exam date and time: 09/01/2020 7:51 PM Age: 55 years old Clinical indication: Other: Generalized weakness, dehydration, R/O pna, mass; Additional info: PT had difficulty holding breath TECHNIQUE: Imaging protocol: Diagnostic computed tomography of the chest without contrast. Radiation optimization: All CT scans at this facility use at least one of these dose optimization techniques: automated exposure control; mA and/or kV adjustment per patient size (includes targeted exams where dose is matched to clinical indication); or iterative reconstruction. COMPARISON: CR CHEST 2 VIEWS PA,LAT 11/15/2016 8:52 AM FINDINGS: Lungs: There is mild central peribronchial thickening. There is no bronchiectasis or bronchiolectasis. There is mild mucus within the central airways. There are scattered regions of mild tree-in-bud opacities suggesting mild infectious small airways disease. There is a 5 x 3 mm left lower lobe nodule on image 470, series 6. There are scattered regions of mild pleuroparenchymal scarring. Incidentally noted is a tracheal bronchus on the right supplying part of the right upper lobe. Pleural spaces: There are no pleural effusions present. Heart: Heart size is normal. There is no pericardial effusion. Aorta: There is mild atherosclerotic calcification of the thoracic aorta without aneurysm formation. Lymph nodes: Unremarkable. No enlarged lymph nodes. Bones/joints: Unremarkable. No acute fracture. Soft tissues: Unremarkable. IMPRESSION: 1. Findings of mild airways disease, as described above, which may be chronic. 2. 5 x 3 mm left lower lobe nodule, indeterminate. For patients at low risk (minimal or absent history of smoking and of other known risk factors), no routine follow-up is indicated. For patients at high risk (history of smoking or of other known risk factors), consider optional CT Chest at 12 months. (Reference: [facility]) REFERENCES: [facility] H, et al. Guidelines for Management of Incidental Pulmonary Nodules Detected on CT Images: From the Fleischner Society 2017. Radiology. 2017;284(1):228-243. PROCEDURE INFORMATION: Exam: CT Abdomen And Pelvis Without Contrast Exam date and time: 09/01/2020 7:51 PM Age: 55 years old Clinical indication: Other: Generalized weakness, dehydration, R/O pna, mass; Additional info: PT had difficulty holding breath TECHNIQUE: Imaging protocol: Computed tomography of the abdomen and pelvis without contrast. Radiation optimization: All CT scans at this facility use at least one of these dose optimization techniques: automated exposure control; mA and/or kV adjustment per patient size (includes targeted exams where dose is matched to clinical indication); or iterative reconstruction. COMPARISON: CR CHEST 2 VIEWS PA,LAT 11/15/2016 8:52 AM FINDINGS: Liver: Normal. No mass. Gallbladder and bile ducts: There are tiny dependent hyperdensities within the gallbladder consistent with tiny gallstones. There is no clear evidence for acute cholecystitis. There is no biliary ductal dilatation. Pancreas: The pancreas is moderately atrophic but appears otherwise unremarkable without focal lesion or evidence of acute inflammation. Spleen: Normal. No splenomegaly. Adrenal glands: Normal. No mass. Kidneys and ureters: No renal or ureteral stones are identified. There is no hydronephrosis or hydroureter. Stomach and bowel: There are few prominent air-filled loops of small bowel without transition point, which may represent ileus. There is no evidence for bowel obstruction. There is no evidence for bowel inflammation. Appendix: No evidence of appendicitis. Intraperitoneal space: Unremarkable. No free air. No significant fluid collection. Vasculature: The aorta and iliac arteries demonstrate moderate atherosclerotic calcification without aneurysm formation. Lymph nodes: Unremarkable. No enlarged lymph nodes. Urinary bladder: No bladder stones are identified. Reproductive: Unremarkable as visualized. Bones/joints: There is moderate degenerative disc disease at L4-L5 with more mild spondylosis at multiple lower thoracic and upper lumbar levels. There is moderate facet arthrosis of the lower lumbar spine. There is bilateral spondylolysis at L5-S1 with grade 1 anterolisthesis at this level. There are multiple mild anterior wedge compression deformities of lower thoracic and upper lumbar vertebra which appear chronic. Soft tissues: Unremarkable. IMPRESSION: 1. No acute process within the abdomen or pelvis identified. 2. No masses or adenopathy. 3. Tiny gallstones. No clear evidence for acute cholecystitis. If this is clinically suspected, abdominal ultrasound could be obtained. Dictated and Authenticated by: Reji Jackson MD. Ordering:RADHA Hoff MD
[2020-09-01 21:59] LABS: Lactate 1.4 mmol/L (0.6-1.4)
[2020-09-01 22:22] LABS: TSH (W/Ref FT4) 9.02 uIU/mL (0.36-3.74)
[2020-09-01 22:39] LABS: Bilirubin Negative (Negative); Blood Small (Negative); Clarity Sl Cloudy (Clear); Glucose Negative (Negative); Ketones Negative (Negative); Leukocyte Esterase Negative (Negative); Nitrite Negative (Negative); Urobilinogen 0.2 EU/dL (Up TO 0.2)
[2020-09-01 22:43] LABS: Procalcitonin 1.8 ng/mL
[2020-09-01 22:47] LABS: FREE T4 1.01 ng/dL (0.76-1.46)
[2020-09-01 22:48] LABS: Bacteria Few HPF (Negative); C & S Indicated? No; Casts 0-2 Hyaline LPF (Negative); Crystals Negative HPF (Negative); Epithelial Cells Moderate HPF (Negative); Mucus Negative (Negative); WBC 0-2 HPF (0-5)
[2020-09-01 22:49] LABS: Other Cells Moderate Renal (Negative)
[2020-09-01] MEDS: Normal Saline 1,000 ML 150 ML IV (22:54)
[2020-09-01 23:02] LABS: Source Nasal/Nares
--- NOTE | 2020-09-01 23:54 | W.PM.HP.N ---
Date of service: 09/01/20 Time of Service: 23:55 Assessment and Plan Assessment and plan (1) Hypotension: Status: Acute Assessment and plan: probably hypovolemic hypotension; POCUS of his heart shows preserved LV function but w/ D-shaped IV septum and enlarged RV. I suspect that he has PHTN from his COPD. Review of prior echo from 10/27/2016 demonstrated normal LV and RV size and function but w/ mod. MR, mod. TR, and pulmonary systolic pressures of 50 to 60 mm and blunted respirophasic IVC changes of less than 50%. Given his progressive anemia (Hb drop from 12.6 gm in May 20, 2020 to current 8.6 gm and further drop to 6.8 gm, along w/ heme positive stool; one has to assume some chronic GI bleeding. He is not having acute severe bleeding otherwise would have hematochezia or hematemesis. Some of the increased drop since presenting to the ER is dilutional from 3 liters of crystolloid being given. I am going to give him 2 units of PRBC and monitor his H&H and put him on protonix. We will have surgery look at him in the morning to consider EGD. His elevated WBC and borderline procalcitonin is worrisome for infectious cause but other than some bronchitis on his CT scan and perhaps a mild cellulitis of his foot from abrasion by a door; I do not see a clear source of infection. Blood cultures were drawn, I have ordered urine culture as well even though his UA is unremarkable. I will cover w/ Ceftriaxone pending negative blood cultures. It may be worth repeat his procalcitonin in 48 hrs. Qualifiers: Hypotension type: hypotension due to hypovolemia Qualified Code(s): I95.89 - Other hypotension; E86.1 - Hypovolemia (2) Anemia due to chronic blood loss: Status: Acute Assessment and plan: GI protection w/ PPI and transfuse to Hb 8 gm (3) Alcohol abuse: Status: Chronic Assessment and plan: monitor per CIWA scale. I have put him on low dose librium prophylactically. cont. banana bag or use oral vitamins. treat w/ lorazepam per CIWA protocol (4) Acute kidney injury: Status: Acute Assessment and plan: presumably d/t prerenal azotemia/hypovolemia; BUN and creatinine already responding (5) Hypokalemia: Status: Acute Assessment and plan: treated w/ oral and parenteral potassium. recheck levels in a.m. (6) Cellulitis of toe: Status: Acute Assessment and plan: wound care consult and iv rocephin. Qualifiers: Laterality: right Qualified Code(s): L03.031 - Cellulitis of right toe (7) Abrasion foot/toe: Status: Acute Qualifiers: Encounter type: initial encounter Laterality: right Qualified Code(s): S90.811A - Abrasion, right foot, initial encounter (8) DVT prophylaxis: Status: Acute Assessment and plan: heparin initally was ordered for prophylaxis but after learning that his stool was heme positive, I have dc'ed his heparin. Will use SCD instead History of Present Illness History of Present Illness Chief Complaint: weak, dizzy, decr. appetite Narrative: 55 yr old male alcoholic (usually drinks at least 10 whiskey/diet Coke drinks per day) who cut down over past 3 weeks to couple drinks per day has had depressed appetite, poor intake for past 5 days along w/ generalized weakness, dizziness. Last alcoholic drink yesterday. No hx of seizures, or alcohol withdrawal. He denies any dyspnea, chest pain/pressure, diarrhea, fever or rigors. Upon arrival to the ER he was very hypotensive w/ SBP 70's to 80 and DBP in 40's to 50's. HR only in the 70's to 80's. Patient was given total of 3 liters of iv fluids in the ER. Diagnostic workup included labs: CBC ( WBC 21,640, Hb 8.6, Hct 25% w/ macrocytic indices, MCV 102; normal platelets 283,000); prior Hb 12.7 gm on 05/20/2020. CMP (low K+ 2.9, BUN 32, creatinine 2.5, AG 18, LFT: AST 71), troponin was not done but has since been ordered and came back normal at <0.05. TSH 9.02 (hx of hypothryoid w/ noncompliance), lactate 1.4, and procalcitonin 1.8. UA was rather unremarkable (cloudy SG 1.020, 100 mg/dL protein but neg. for ketones, nitrites, and leukocyte esterase and only 0-2 WBC and few bacteria, but moderate renal cells. Patient's rectal exam was positive for heme but not grossly melenotic nor hematochezia. Blood cultures were obtained but he was not started on antibiotics in the ER. Upon arrival to the ER he remained moderately hypotensive. Repeat labs were done including a troponin now was added. Hb returned lower at 6.8 gm and HCT 20%. He was typed and screened and cross matched for 2 units of PRBC. I discussed transfusion w/ the patient and he is agreeable to receiving blood. He was started on protonix. It is presumed that he has either an alcoholic gastritis/duodenitis or PUD, although an occult malignancy has not been excluded. Radiologic imaging included non-contrast CT chest, abdomen, pelvis. Chest CT demonstrated peribronchial thickening but no bronchiectasis. He has scattered tree in bud opacities suggestive of mild infectious small airway disease and 5 mm x 3 mm LLL nodule and scattered pleuroparenchymal scarring. Also of note patient couple weeks ago got his right foot caught under the screen door and suffered and abrasion over the dorsum of his right foot at the base of his great toe. Review of Systems Constitutional Constitutional: Reports anorexia, Denies chills, Reports fatigue, Denies fever(s), Reports lethargy, Reports malaise, Reports poor appetite and Reports weakness Eyes Eyes: Reports system reviewed and no additional complaints, except as documented ENT Ears, Nose, Mouth, and Throat: Reports dizziness and Reports epistaxis (recent nose bleed couple days ago) Cardiovascular Cardiovascular: Reports system reviewed and no additional complaints, except as documented, Denies chest pain, Denies syncope, Reports lightheadedness, Denies dyspnea and Denies dyspnea on exertion Respiratory Respiratory: Denies chest congestion, Denies cough, Denies hemoptysis, Denies dyspnea and Denies dyspnea on exertion Gastrointestinal Gastrointestinal: Reports system reviewed and no additional complaints, except as documented, Denies abdominal pain, Denies melena, Denies hematochezia, Denies nausea, Denies vomiting and Denies hematemesis Genitourinary Genitourinary: Reports system reviewed and no additional complaints, except as documented, Denies urinary frequency and Denies urinary urgency Musculoskeletal Musculoskeletal: Reports system reviewed and no additional complaints, except as documented Integumentary/Breasts Skin/Breast: Reports non-healing lesions (right great toes) and Reports skin ulcer Neurologic Neurologic: Reports system reviewed and no additional complaints, except as documented, Reports dizziness, Denies syncope and Reports weakness Psychiatric Psychiatric: Reports system reviewed and no additional complaints, except as documented Endocrine Endocrine: Reports system reviewed and no additional complaints, except as documented and Reports fatigue Hematologic/Lymphatic Hematologic/Lymphatic: Reports system reviewed and no additional complaints, except as documented Allergic/Immunologic Allergic/Immunologic: Reports system reviewed and no additional complaints, except as documented PFSH Medical History Alcohol abuse Anemia Depression Essential hypertension Hypothyroidism (11/15/12) Optic neuropathy Smoker Surgical History Repair, Tendon or Muscle (~2005) LEFT FINGER Family History Mother Diabetes Hyperlipidemia Father Personal history of malignant neoplasm Throat Sister Multiple sclerosis Brother No problems noted. Grandfather Heart disease Grandmother No problems noted. Social History Smoking/Tobacco Use Status: Current-Occasional Tobacco Type: cigarettes Years smoked: 35 Smoking risk assessment performed?: Yes Alcohol Intake: current Alcohol Intake frequency: 0-2 drinks per day Alcohol type: hard liquor Drug use: Never Substance use type: does not use Do you feel safe at home: Yes Do you feel safe in your relationship?: Yes Meds Allergies and Home Medications Allergies Allergy/AdvReac Type Severity Reaction Status Date / Time No Known Allergies Allergy Verified 09/01/20 18:48 Home Medications Medication Instructions Recorded Confirmed Type levothyroxine 125 mcg tablet 125 mcg PO DAILY #90 tab-cap 05/18/18 09/01/20 Rx sertraline 100 mg tablet 100 mg PO DAILY #90 tab-cap 01/09/20 09/01/20 Rx vitamin E 200 unit capsule 200 unit PO DAILY #90 cap 01/09/20 09/01/20 Rx multivitamin 1 tab PO DAILY 02/27/20 09/01/20 History Exam Narrative Exam Narrative: Middle age white male; alert and oriented despite his low BP; dry mucos membranes, no epistaxis; nor oral exudate; Neck supple nontender, no LN, normal carotid pulses Lungs diffusely diminished but clear Heart: RRR; w/out murmur or rub or gallops Abdomen: nondistended, soft and nontender. no palpable masses nor organomegaly Extremities: multiple skin abrasions on hands and fingers w/ some scarrring; right foot w/ abrasion and redness and superficial skin ulceration over base of right great toe; thickened hyperkeratotic nails on both feet. normal pedal pulses; no deep sores.; normal ROM and strength Neuro: grossly intact; normal speech; no facial asymmetry; no asterixis; no nystagmus; normal motor and grossly normal sensory to light touch (vibratory and temperature not tested). Rectal exam done in the ER. reportedly brown stool but guaic positive Results Labs Result diagrams: 09/02/20 00:15 09/02/20 00:15 Labs: Laboratory Results - last 24 hr 09/01/20 09/01/20 09/01/20 18:54 18:54 18:54 WBC 21.64 H RBC 2.43 L Hgb 8.6 L Hct 25.0 L MCV 102.9 H MCH 35.4 H MCHC 34.4 RDW 14.8 H Plt Count 283 MPV 10.8 Immature Gran % 1.3 Neutrophils % 80.2 Lymphocytes % 9.1 Monocytes % 7.5 Eosinophils % 1.2 Basophils % 0.7 Nucleated RBC % 0 Absolute Neutrophils 17.36 H Absolute Lymphocytes 1.97 Absolute Monocytes 1.62 H Absolute Eosinophils 0.26 Absolute Basophils 0.15 VBG Lactate Sodium 132 L Potassium 2.9 L Chloride 91 L Carbon Dioxide 23.0 Anion Gap 18.0 H BUN 32 H Creatinine 2.4 H Estimated GFR/1.73 m2 28.04 Glucose 139 H Calcium 9.6 Total Bilirubin 0.9 AST 71 H ALT 25 Alkaline Phosphatase 82 Total Protein 8.3 H Albumin 3.8 Lipase 155 Procalcitonin TSH Free T4 Urine Color Urine Clarity Urine pH Ur Specific [place] Urine Protein Urine Ketones Urine Blood Urine Nitrite Urine Bilirubin Urine Urobilinogen Ur Leukocyte Esterase Urine RBC Urine WBC Ur Epithelial Cells Urine Crystals Urine Bacteria Urine Casts Urine Mucus Urine Other Ur Culture Indicated? Urine Glucose Ethyl Alcohol < 3.0 COVID-19 Source 09/01/20 09/01/20 09/01/20 21:47 21:47 21:47 WBC RBC Hgb Hct MCV MCH MCHC RDW Plt Count MPV Immature Gran % Neutrophils % Lymphocytes % Monocytes % Eosinophils % Basophils % Nucleated RBC % Absolute Neutrophils Absolute Lymphocytes Absolute Monocytes Absolute Eosinophils Absolute Basophils VBG Lactate 1.4 Sodium Potassium Chloride Carbon Dioxide Anion Gap BUN Creatinine Estimated GFR/1.73 m2 Glucose Calcium Total Bilirubin AST ALT Alkaline Phosphatase Total Protein Albumin Lipase Procalcitonin 1.8 TSH 9.02 H Free T4 1.01 Urine Color Urine Clarity Urine pH Ur Specific [place] Urine Protein Urine Ketones Urine Blood Urine Nitrite Urine Bilirubin Urine Urobilinogen Ur Leukocyte Esterase Urine RBC Urine WBC Ur Epithelial Cells Urine Crystals Urine Bacteria Urine Casts Urine Mucus Urine Other Ur Culture Indicated? Urine Glucose Ethyl Alcohol COVID-19 Source 09/01/20 09/01/20 22:31 22:55 WBC RBC Hgb Hct MCV MCH MCHC RDW Plt Count MPV Immature Gran % Neutrophils % Lymphocytes % Monocytes % Eosinophils % Basophils % Nucleated RBC % Absolute Neutrophils Absolute Lymphocytes Absolute Monocytes Absolute Eosinophils Absolute Basophils VBG Lactate Sodium Potassium Chloride Carbon Dioxide Anion Gap BUN Creatinine Estimated GFR/1.73 m2 Glucose Calcium Total Bilirubin AST ALT Alkaline Phosphatase Total Protein Albumin Lipase Procalcitonin TSH Free T4 Urine Color Yellow Urine Clarity Sl cloudy Urine pH 6.0 Ur Specific [place] 1.020 Urine Protein 100 H Urine Ketones Negative Urine Blood Small H Urine Nitrite Negative Urine Bilirubin Negative Urine Urobilinogen 0.2 Ur Leukocyte Esterase Negative Urine RBC 3-5 H Urine WBC 0-2 Ur Epithelial Cells Moderate Urine Crystals Negative Urine Bacteria Few Urine Casts 0-2 hyaline Urine Mucus Negative Urine Other Moderate renal Ur Culture Indicated? No Urine Glucose Negative Ethyl Alcohol COVID-19 Source Nasal/nares Last Vital Signs Temp 36.0 C L 09/01/20 23:24 Pulse 67 09/01/20 23:39 Resp 21 09/01/20 23:39 BP 91/63 L 09/01/20 23:39 Pulse Ox 99 09/01/20 23:39
[2020-09-02] VITALS (92 sets, daily range): BP systolic 73–103; BP diastolic 41–76; PULSE 54–82; RESP 12–27; TEMP 36.3–36.7; O2SAT 84–100
--- NOTE | 2020-09-02 | DI.US_ITS ---
APPROVED REPORT EXAM: Comprehensive 2D, Doppler, and color-flow Echocardiogram Patient Location: In-Patient Room/Bed: [id number] Optometrist President/Practice Owner: Rika Burrell RDCS (AE) Indications: Hypotension, Evaluate LV/RV Other Information Study Quality: Adequate Conclusion Normal left ventricular wall thickness and chamber size. Estimated ejection fraction is 55 to 60%. Wall motion is normal Normal right ventricular size and systolic function Both atria are normal in size Aortic valve is trileaflet without stenosis or regurgitation Structurally normal tricuspid valve with mild to moderate regurgitation. Estimated right ventricular systolic pressure is 36 mmHg Normal mitral valve with trace regurgitation Mildly dilated ascending aorta measuring 3.72 cm Wall motion Left Ventricle The left ventricle is normal size. The left ventricular systolic function is normal. The left ventric ular ejection fraction is within the normal range. There is normal left ventricular wall thickness. T here is normal LV segmental wall motion. There is no ventricular septal defect visualized. LVEF is 55 -60%. Right Ventricle Right ventricle is grossly normal in size. Right ventricular systolic function is grossly normal. The RVSP is 35.9mmHg. Atria The left atrium size is normal. The right atrium size is normal. The interatrial septum is intact wit h no evidence for an atrial septal defect. Aortic Valve The aortic valve is normal in structure. Aortic valve is trileaflet. There is no aortic valvular sten osis. No aortic regurgitation is present. Mitral Valve The mitral valve is normal in structure. No evidence of mitral valve stenosis. Trace mitral regurgita tion. Tricuspid Valve The tricuspid valve is normal in structure. There is no tricuspid valve stenosis. Mild to moderate tr icuspid regurgitation. Pulmonic Valve The pulmonary valve is normal in structure. There is no pulmonic valvular stenosis. Trace pulmonic re gurgitation. Great Vessels The aortic root is normal in size. The ascending aorta is mildly dilated. Aortic arch is not well vis ualized. The IVC collapses <50% with inspiration. Pericardium There is no pericardial effusion. 2D Dimensions IVSD d PLAX 1.03 cm M: 0.6-1.2 LV Vol A2C d MOD 88.6 mL LVPW d PLAX 1.05 cm M: 0.6 - 1.2 LV Vol A4C d MOD 84.5 mL LVID d PLAX 4.75 cm M: 4.2 - 5.8 LA vol/ BSA A2C s A-L 24.2 mL/m2 LVDs 3.30 cm M: 2.5 - 4.0 LA vol/ BSA A4C s A-L 25.7 mL/m2 Ao Root d 3.63 cm M: 3.1 - 3.7 LA Vol/ BSA Biplane s A-L 26.3 mL/m2 RA Area A4C 15.38 cm2 LA Area A4C s MOD 16.10 cm2 RA Vol/ BSA A4C s A-L 22.7 mL/m2 LA Area A2C s MOD 16.48 cm2 Ao Asc Diam d 3.72 cm M: 2.6 - 3.4 LV EF A4C MOD 55.0 % LV EF Teichholz 56.6 % LV EF A2C MOD 55.5 % LVEF (Schmitt's) 54.87 % M: 52 - 72 LV EF Biplane MOD 54.9 % LV Volume 68.04 mL M: 62 - 150 SV 47.84 mL LV Volume Index 38.22 mL/m2 M: 34 - 74 SV Index 26.83 mL/m2 LV Vol Biplane MOD 87.2 mL FS 29.60 % M-Mode TAPSE 2.83 cm (M/F) >1.7 LV Diastology MV E' medial 0.090 (>0.07 m/s) E/A Ratio 1.3 LV E/e MED 7.30 (<14) MV E Vmax 0.66 (0.4-1.3 m/s) MV E' lateral 0.117 (>0.1 m/s) MV A Vmax 0.50 (0.4-1.3 m/s) LV E/e LAT 5.60 (<14) MV E/A Ratio 1.22 MV E/E' medial 7.32 MV E/E' lateral 5.64 Aortic Valve LVOT Area 2.99 cm2 AoV Area Vmax 2.17 cm2 LVOT Vmax 0.89 m/s AoV Area/ BSA (Vmax) 1.22 cm2/m2 LVOT Mean Bhaskar. 0.58 m/s ONDINA Mean Bhasakr. 1.92 cm2 LVOT Peak Grad 3.2 mmHg ONDINA Mean Bhaskar. Index 1.08 cm2/m2 LVOT Mean Grad 1.6 mmHg LVOT VTI 0.186 m LVOT Diam s 1.95 cm AoV Vmax 1.23 m/s Velocity Ratio 0.72 AoV Mean Bhaskar. 0.90 m/s AoV Peak Grad 6.1 mmHg LVOT SV 55.49 mL AoV Mean Grad 3.5 mmHg AoV VTI 0.258 m AoV Area VTI 2.15 cm2 AoV Area/ BSA (VTI) 1.20 cm/m2 Mitral Valve MV DT 178 (160-240 msec) MV PHT 52 msec MV Area PHT 4.26 cm2 MV VTI 0.191 m MV VTI Annulus 0.189 m MV Area VTI 2.87 (4.0-6.0 cm2) Pulmonary Valve PV Vmax 0.66 (0.5-1.5 m/s) RVOT Peak Gr. 1.36 mmHg PV Peak Grad 1.7 mmHg RVOT Mean Gr. 0.75 mmHg PV Mean Grad 1.1 mmHg RVOT VTI 0.142 m PV VTI 0.157 m RVOT Vmax 0.58 m/s Tricuspid Valve TR Peak Grad 27.8 mmHg TR Vmax 2.64 m/s RA Pressure 8.00 mmHg RVSP (TR) 35.9 mmHg
[2020-09-02 00:26] LABS: HGB 6.8 g/dL (13.5-17.5)
[2020-09-02 00:37] LABS: Anion Gap 11.1 mmol/L (3-11); BUN 31 mg/dL (7-18); CO2 22.9 mmol/L (21.0-32.0); CREATININE 1.9 mg/dL (0.70-1.30); Calcium 7.8 mg/dL (8.5-10.1); Chloride 101 mmol/L (98-107); Estimated GFR 36.72 (mL/min/1.73m2); Glucose 111 mg/dL (74-106); Potassium 3.4 mmol/L (3.5-5.1); Sodium 135 mmol/L (136-145); Troponin I < 0.05 ng/mL (<0.06)
[2020-09-02 01:27] LABS: COVID-19 PCR Negative (Negative)
[2020-09-02] MEDS: Pantoprazole 40 MG VIAL IVP ×3 (01:41→20:42)
[2020-09-02] MEDS: Normal Saline Flush 10 ML SYR IVP ×2 (02:10→04:59)
[2020-09-02] MEDS: Normal Saline 500 ML 30 ML IV ×2 (02:13→04:59)
[2020-09-02] MEDS: chlordiazePOXIDE 25 MG CAP PO ×4 (02:21→20:42)
[2020-09-02 03:06] LABS: *AMPHETAMINES SCREEN URINE Negative (Negative); *BARBITURATES SCREEN URINE Negative (Negative); *BENZODIAZEPINES SCREEN URINE Negative (Negative); Cannabinoids THC Negative (Negative); Cocaine Screen,Urine Negative (Negative); METHADONE URINE SCREEN Negative (Negative); OPIATES URINE SCREEN Negative (Negative); Tricyclic Antidepressants Negative (Negative)
[2020-09-02] MEDS: Levothyroxine 125 MCG TAB PO (05:29)
[2020-09-02 06:53] LABS: Lactate 1.1 mmol/L (0.6-1.4)
[2020-09-02 07:00] LABS: Abs Immature Grans 0.05 10^3/uL (0.0-0.06); Absolute Basophil Count 0.06 10^3/uL (0.0-0.2); Absolute Eosinophil Count 0.29 10^3/uL (0.0-0.7); Absolute Lymphocyte Count 1.16 10^3/uL (1.2-3.4); Absolute Monocyte Count 0.81 10^3/uL (0.1-0.8); Absolute Neutrophil Count 6.82 10^3/uL (1.2-6.7); Basophils % 0.7; Eosinophils % 3.2; HCT 25.4 % (40.0-50.0); HGB 8.7 g/dL (13.5-17.5); Immature Grans % 0.5; Lymphocytes % 12.6; MCH 35.2 pg (27.0-33.0); MCHC 34.3 % (32.0-36.0); MCV 102.8 fL (80-95); MPV 10.6 fL (8.0-11.0); Monocytes % 8.8; Neutrophils % 74.2; Nucleated RBC 0 %; Platelet Count 159 10^3/uL (130-400); RBC 2.47 10^6/uL (4.36-5.78); RDW 15.3 % (11.8-14.1); RDW-SD 57.5 fL; WBC 9.19 10^3/uL (4.4-10.8)
[2020-09-02 07:10] LABS: INR 1.2 (0.9-1.1); Prothrombin Time 12.1 sec (9.3-11.0)
[2020-09-02 07:13] LABS: Magnesium 1.6 mg/dL (1.8-2.4); PHOSPHORUS 2.6 mg/dL (2.6-4.7)
[2020-09-02 07:14] LABS: ALT 20 U/L (16-63); AST 49 U/L (15-37); Albumin 2.7 g/dL (3.4-5.0); Alkaline Phosphatase 63 U/L (46-116); Anion Gap 11.1 mmol/L (3-11); BUN 29 mg/dL (7-18); Bilirubin, Total 0.6 mg/dL (0.2-1.0); CO2 23.9 mmol/L (21.0-32.0); Calcium 7.6 mg/dL (8.5-10.1); Chloride 102 mmol/L (98-107); Estimated GFR 34.61 (mL/min/1.73m2); Glucose 109 mg/dL (74-106); Potassium 3.3 mmol/L (3.5-5.1); Sodium 137 mmol/L (136-145); Total Protein 6.2 g/dL (6.4-8.2)
[2020-09-02 07:19] LABS: Troponin I < 0.05 ng/mL (<0.06)
--- NOTE | 2020-09-02 07:25 | INITIAL_ITS ---
- If Service Date Differs Date of service: 09/02/20 Time of Service: 07:26 Care Management Initial Assess REASON FOR HOSPITALIZATION:: Hypotension PAST MEDICAL HISTORY/PAST SURGICAL HISTORY:: Medical History. Alcohol abuse. Anemia. Depression. Essential hypertension. Hypothyroidism (11/15/12). Optic neuropathy. Smoker. Surgical History . Repair, Tendon or Muscle (~2005). LEFT FINGER PREVIOUS FUNCTIONAL STATUS/SOCIAL/FAMILY SUPPORTS:: Guy lives alone with his dog in a mobile home in [place], [place]. He has 2 sons that he stated he is close to. Guy is disabled due to his vision and has been unable to work for about 7 years. He can see some things close up but even a few feet away, vision is difficult. Guy receives Meals on Wheels but no other community services. He is independent with ADLs and uses a cane on occasion. CURRENT FUNCTIONAL STATUS:: Guy was lying in bed when CM met with him. He was polite but not very interactive. CM asked if Guy had seen the surgeon yet and he made a face. When aksed why he seemed upset with the question, he apologized and stated he did not know why he did that. He went on to inform CM that he does not plan to be in the hospital longer than tomorrow. ADVANCE DIRECTIVES:: none on file Has patient been provided with info about the portal/API?: Yes Did the patient sign up for the portal?: No CODE STATUS:: Full Code INSURANCE COVERAGE / FINANCIAL ISSUES:: Medicare CURRENT HOME/COMMUNITY SERVICES/EQUIPMENT:: cane. Meals on Wheels PRIMARY CARE PHYSICIAN:: Elias Mattson POTENTIAL DISCHARGE NEEDS:: Followup with PCP and discharge plan of care PATIENT/FAMILY EDUCATION NEEDS:: review of discharge instructions, medications, limitations, activity, follow up plan, Ask Me Three TRANSPORTATION:: via private vehicle with family PLAN:: Guy will likely be discharged home with no new services. He will follow up with his PCP and, possibly, GI and transport with family. CM will continue to support Guy and his discharge planning concerns.
[2020-09-02 07:39] LABS: Vitamin B12 975 pg/mL (193-986)
[2020-09-02] MEDS: Vitamin E 400 UNITS CAP PO (08:53)
[2020-09-02] MEDS: Multivitamin TAB 1 TAB PO (08:53)
[2020-09-02] MEDS: Thiamine 100 MG TAB PO (08:53)
[2020-09-02] MEDS: Sertraline 50 MG TAB 100 MG PO (08:53)
[2020-09-02] MEDS: Potassium Chloride 20 MEQ TABCR PO ×2 (08:53→20:42)
[2020-09-02] MEDS: Folic Acid 1 MG TAB PO (08:53)
[2020-09-02] MEDS: MAGNESIUM SULFATE 2 GM/50 ML BAG IVPB (08:54)
--- NOTE | 2020-09-02 12:13 | PGE_ITS ---
Date of Service Date of service: 09/02/20 Time of Service: 12:15 Assessment and Plan Assessment and plan (1) Abrasion foot/toe: Status: Acute Assessment and plan: Dorsal aspect of R great toe with abrasion. Bactroban cream TID. + oncychomycotic toenail; consulted Podiatry. Qualifiers: Encounter type: initial encounter Laterality: right Qualified Code(s): S90.811A - Abrasion, right foot, initial encounter (2) Anemia due to chronic blood loss: Status: Acute Assessment and plan: S/P transfusion of 2 units RBCs Gen Surg consulted to evaluate. Will benefit from endoscopy but timing to be determined. Possible variceal bleed vs alcoholic gastritis vs colon pathology. (3) Hypotension: Status: Acute Assessment and plan: He has received 3L of IV fluid boluses, 1 banana bag and 2 units of RBCs. Cont NS at 150ml/hour and monitor. Not symptomatic. MAP is good. Qualifiers: Hypotension type: hypotension due to hypovolemia Qualified Code(s): I95.89 - Other hypotension; E86.1 - Hypovolemia (4) Alcohol abuse: Status: Chronic Assessment and plan: CIWA monitoring with prn Lorazepam Scheduled Librium. (5) Acute kidney injury: Status: Acute Assessment and plan: Creatinine 2.0; was 2.4 on admission. Cont to monitor. (6) Hypokalemia: Status: Acute Assessment and plan: K of 2.9 on admission. Improved to 3.4, 3.3. Monitor and replace. (7) DVT prophylaxis: Status: Acute Assessment and plan: Have not initiated chemical prophylaxis d/t anemia; likely secondary to bleeding. SCDs. Subjective Subjective Patient reports: feels better; denies diarrhea, vomiting and shortness of breath Interval history since last seen: He states his head has cleared. Exam Const General: cooperative, no acute distress and frail appearing Nutritional Appearance: thin Orientation: alert, oriented to person and oriented to place Eyes Sclera: sclerae normal Pupils: PERRL Resp Effort & Inspection: normal respiratory effort Auscultation: clear to auscultation bilaterally and diminished lung sounds Cardio Rate: regular rate Rhythm: regular rhythm Heart Sounds: S1 normal, S2 normal and no murmurs GI Palpation: soft and nontender Auscultation: normal bowel sounds Neuro General: no focal motor deficits Speech: speech normal Extrem General: no pedal edema and no calf tenderness Objective Last Vital Signs Temp 36.5 C 09/02/20 07:33 Pulse 62 09/02/20 09:31 Resp 17 09/02/20 09:31 BP 88/57 L 09/02/20 09:31 Pulse Ox 97 09/02/20 06:30 Laboratory Results - last 24 hr 09/01/20 09/01/20 09/01/20 18:54 18:54 18:54 WBC 21.64 H RBC 2.43 L Hgb 8.6 L Hct 25.0 L MCV 102.9 H MCH 35.4 H MCHC 34.4 RDW 14.8 H Plt Count 283 MPV 10.8 Immature Gran % 1.3 Neutrophils % 80.2 Lymphocytes % 9.1 Monocytes % 7.5 Eosinophils % 1.2 Basophils % 0.7 Nucleated RBC % 0 Absolute Neutrophils 17.36 H Absolute Lymphocytes 1.97 Absolute Monocytes 1.62 H Absolute Eosinophils 0.26 Absolute Basophils 0.15 PT INR VBG Lactate Sodium 132 L Potassium 2.9 L Chloride 91 L Carbon Dioxide 23.0 Anion Gap 18.0 H BUN 32 H Creatinine 2.4 H Estimated GFR/1.73 m2 28.04 Glucose 139 H Calcium 9.6 Phosphorus Magnesium Total Bilirubin 0.9 AST 71 H ALT 25 Alkaline Phosphatase 82 Troponin I Total Protein 8.3 H Albumin 3.8 Lipase 155 Vitamin B12 Procalcitonin TSH Free T4 Urine Color Urine Clarity Urine pH Ur Specific [place] Urine Protein Urine Ketones Urine Blood Urine Nitrite Urine Bilirubin Urine Urobilinogen Ur Leukocyte Esterase Urine RBC Urine WBC Ur Epithelial Cells Urine Crystals Urine Bacteria Urine Casts Urine Mucus Urine Other Ur Culture Indicated? Urine Glucose Urine Opiates Screen Urine Methadone Screen Ur Barbiturates Screen Ur Tricyclics Screen Ur Amphetamines Screen U Benzodiazepines Scrn Urine Cocaine Screen Ur THC Screen Ethyl Alcohol < 3.0 COVID-19 Source SARS-CoV-2 (PCR) Patient ABO/Rh Antibody Screen Crossmatch 09/01/20 09/01/20 09/01/20 21:47 21:47 21:47 WBC RBC Hgb Hct MCV MCH MCHC RDW Plt Count MPV Immature Gran % Neutrophils % Lymphocytes % Monocytes % Eosinophils % Basophils % Nucleated RBC % Absolute Neutrophils Absolute Lymphocytes Absolute Monocytes Absolute Eosinophils Absolute Basophils PT INR VBG Lactate 1.4 Sodium Potassium Chloride Carbon Dioxide Anion Gap BUN Creatinine Estimated GFR/1.73 m2 Glucose Calcium Phosphorus Magnesium Total Bilirubin AST ALT Alkaline Phosphatase Troponin I Total Protein Albumin Lipase Vitamin B12 Procalcitonin 1.8 TSH 9.02 H Free T4 1.01 Urine Color Urine Clarity Urine pH Ur Specific [place] Urine Protein Urine Ketones Urine Blood Urine Nitrite Urine Bilirubin Urine Urobilinogen Ur Leukocyte Esterase Urine RBC Urine WBC Ur Epithelial Cells Urine Crystals Urine Bacteria Urine Casts Urine Mucus Urine Other Ur Culture Indicated? Urine Glucose Urine Opiates Screen Urine Methadone Screen Ur Barbiturates Screen Ur Tricyclics Screen Ur Amphetamines Screen U Benzodiazepines Scrn Urine Cocaine Screen Ur THC Screen Ethyl Alcohol COVID-19 Source SARS-CoV-2 (PCR) Patient ABO/Rh Antibody Screen Crossmatch 09/01/20 09/01/20 09/01/20 22:31 22:31 22:55 WBC RBC Hgb Hct MCV MCH MCHC RDW Plt Count MPV Immature Gran % Neutrophils % Lymphocytes % Monocytes % Eosinophils % Basophils % Nucleated RBC % Absolute Neutrophils Absolute Lymphocytes Absolute Monocytes Absolute Eosinophils Absolute Basophils PT INR VBG Lactate Sodium Potassium Chloride Carbon Dioxide Anion Gap BUN Creatinine Estimated GFR/1.73 m2 Glucose Calcium Phosphorus Magnesium Total Bilirubin AST ALT Alkaline Phosphatase Troponin I Total Protein Albumin Lipase Vitamin B12 Procalcitonin TSH Free T4 Urine Color Yellow Urine Clarity Sl cloudy Urine pH 6.0 Ur Specific [place] 1.020 Urine Protein 100 H Urine Ketones Negative Urine Blood Small H Urine Nitrite Negative Urine Bilirubin Negative Urine Urobilinogen 0.2 Ur Leukocyte Esterase Negative Urine RBC 3-5 H Urine WBC 0-2 Ur Epithelial Cells Moderate Urine Crystals Negative Urine Bacteria Few Urine Casts 0-2 hyaline Urine Mucus Negative Urine Other Moderate renal Ur Culture Indicated? No Urine Glucose Negative Urine Opiates Screen Negative Urine Methadone Screen Negative Ur Barbiturates Screen Negative Ur Tricyclics Screen Negative Ur Amphetamines Screen Negative U Benzodiazepines Scrn Negative Urine Cocaine Screen Negative Ur THC Screen Negative Ethyl Alcohol COVID-19 Source Nasal/nares SARS-CoV-2 (PCR) Negative Patient ABO/Rh Antibody Screen Crossmatch 09/02/20 09/02/20 09/02/20 00:15 00:15 01:10 WBC RBC Hgb 6.8 L* Hct 20.0 L* MCV MCH MCHC RDW Plt Count MPV Immature Gran % Neutrophils % Lymphocytes % Monocytes % Eosinophils % Basophils % Nucleated RBC % Absolute Neutrophils Absolute Lymphocytes Absolute Monocytes Absolute Eosinophils Absolute Basophils PT INR VBG Lactate Sodium 135 L Potassium 3.4 L Chloride 101 Carbon Dioxide 22.9 Anion Gap 11.1 H BUN 31 H Creatinine 1.9 H Estimated GFR/1.73 m2 36.72 Glucose 111 H Calcium 7.8 L Phosphorus Magnesium Total Bilirubin AST ALT Alkaline Phosphatase Troponin I < 0.05 Total Protein Albumin Lipase Vitamin B12 Procalcitonin TSH Free T4 Urine Color Urine Clarity Urine pH Ur Specific [place] Urine Protein Urine Ketones Urine Blood Urine Nitrite Urine Bilirubin Urine Urobilinogen Ur Leukocyte Esterase Urine RBC Urine WBC Ur Epithelial Cells Urine Crystals Urine Bacteria Urine Casts Urine Mucus Urine Other Ur Culture Indicated? Urine Glucose Urine Opiates Screen Urine Methadone Screen Ur Barbiturates Screen Ur Tricyclics Screen Ur Amphetamines Screen U Benzodiazepines Scrn Urine Cocaine Screen Ur THC Screen Ethyl Alcohol COVID-19 Source SARS-CoV-2 (PCR) Patient ABO/Rh O Positive Antibody Screen Negative Crossmatch See Detail 09/02/20 09/02/20 09/02/20 06:41 06:41 06:41 WBC 9.19 D RBC 2.47 L Hgb 8.7 L Hct 25.4 L D MCV 102.8 H MCH 35.2 H MCHC 34.3 RDW 15.3 H Plt Count 159 D MPV 10.6 Immature Gran % 0.5 Neutrophils % 74.2 Lymphocytes % 12.6 Monocytes % 8.8 Eosinophils % 3.2 Basophils % 0.7 Nucleated RBC % 0 Absolute Neutrophils 6.82 H Absolute Lymphocytes 1.16 L Absolute Monocytes 0.81 H Absolute Eosinophils 0.29 Absolute Basophils 0.06 PT INR VBG Lactate Sodium 137 Potassium 3.3 L Chloride 102 Carbon Dioxide 23.9 Anion Gap 11.1 H BUN 29 H Creatinine 2.0 H Estimated GFR/1.73 m2 34.61 Glucose 109 H Calcium 7.6 L Phosphorus Magnesium Total Bilirubin 0.6 AST 49 H ALT 20 Alkaline Phosphatase 63 Troponin I < 0.05 Total Protein 6.2 L Albumin 2.7 L Lipase Vitamin B12 Procalcitonin TSH Free T4 Urine Color Urine Clarity Urine pH Ur Specific [place] Urine Protein Urine Ketones Urine Blood Urine Nitrite Urine Bilirubin Urine Urobilinogen Ur Leukocyte Esterase Urine RBC Urine WBC Ur Epithelial Cells Urine Crystals Urine Bacteria Urine Casts Urine Mucus Urine Other Ur Culture Indicated? Urine Glucose Urine Opiates Screen Urine Methadone Screen Ur Barbiturates Screen Ur Tricyclics Screen Ur Amphetamines Screen U Benzodiazepines Scrn Urine Cocaine Screen Ur THC Screen Ethyl Alcohol COVID-19 Source SARS-CoV-2 (PCR) Patient ABO/Rh Antibody Screen Crossmatch 09/02/20 09/02/20 09/02/20 06:41 06:41 06:41 WBC RBC Hgb Hct MCV MCH MCHC RDW Plt Count MPV Immature Gran % Neutrophils % Lymphocytes % Monocytes % Eosinophils % Basophils % Nucleated RBC % Absolute Neutrophils Absolute Lymphocytes Absolute Monocytes Absolute Eosinophils Absolute Basophils PT 12.1 H INR 1.2 H VBG Lactate Sodium Potassium Chloride Carbon Dioxide Anion Gap BUN Creatinine Estimated GFR/1.73 m2 Glucose Calcium Phosphorus 2.6 Magnesium 1.6 L Total Bilirubin AST ALT Alkaline Phosphatase Troponin I Total Protein Albumin Lipase Vitamin B12 975 Procalcitonin TSH Free T4 Urine Color Urine Clarity Urine pH Ur Specific [place] Urine Protein Urine Ketones Urine Blood Urine Nitrite Urine Bilirubin Urine Urobilinogen Ur Leukocyte Esterase Urine RBC Urine WBC Ur Epithelial Cells Urine Crystals Urine Bacteria Urine Casts Urine Mucus Urine Other Ur Culture Indicated? Urine Glucose Urine Opiates Screen Urine Methadone Screen Ur Barbiturates Screen Ur Tricyclics Screen Ur Amphetamines Screen U Benzodiazepines Scrn Urine Cocaine Screen Ur THC Screen Ethyl Alcohol COVID-19 Source SARS-CoV-2 (PCR) Patient ABO/Rh Antibody Screen Crossmatch 09/02/20 09/02/20 06:42 Unknown WBC RBC Hgb Cancelled Hct Cancelled MCV MCH MCHC RDW Plt Count MPV Immature Gran % Neutrophils % Lymphocytes % Monocytes % Eosinophils % Basophils % Nucleated RBC % Absolute Neutrophils Absolute Lymphocytes Absolute Monocytes Absolute Eosinophils Absolute Basophils PT INR VBG Lactate 1.1 Sodium Potassium Chloride Carbon Dioxide Anion Gap BUN Creatinine Estimated GFR/1.73 m2 Glucose Calcium Phosphorus Magnesium Total Bilirubin AST ALT Alkaline Phosphatase Troponin I Total Protein Albumin Lipase Vitamin B12 Procalcitonin TSH Free T4 Urine Color Urine Clarity Urine pH Ur Specific [place] Urine Protein Urine Ketones Urine Blood Urine Nitrite Urine Bilirubin Urine Urobilinogen Ur Leukocyte Esterase Urine RBC Urine WBC Ur Epithelial Cells Urine Crystals Urine Bacteria Urine Casts Urine Mucus Urine Other Ur Culture Indicated? Urine Glucose Urine Opiates Screen Urine Methadone Screen Ur Barbiturates Screen Ur Tricyclics Screen Ur Amphetamines Screen U Benzodiazepines Scrn Urine Cocaine Screen Ur THC Screen Ethyl Alcohol COVID-19 Source SARS-CoV-2 (PCR) Patient ABO/Rh Antibody Screen Crossmatch
[2020-09-02] MEDS: cefTRIAXone 2 GM/50 ML BAG IVPB (12:17)
[2020-09-02 14:15] LABS: HCT 26.1 % (40.0-50.0); HGB 8.9 g/dL (13.5-17.5)
[2020-09-02] MEDS: Mupirocin 2% 15 GM TUBE TP ×2 (14:23→20:00)
--- NOTE | 2020-09-02 16:03 | SCONE_ITS ---
History of Present Illness History of Present Illness Chief Complaint: weakness Narrative: This is a 55-year-old male with a history of hypothyroid, depression, and heavy alcohol and tobacco abuse, who presented with progressive weakness with syncope. He describes becoming progressively weaker over the past week or so. He is disabled, due to optic neuropathy, and reportedly drinks up to 10 whiskey drinks per day, though he has recently cut back. He also admits to smoking about a pack per day of cigarettes. He denies heratburn/GERD symptoms. He has never had a colonoscopy or endoscopy. He states that he normally has 1-3 brown bowel movements per day, and denies hematochezia or dark, tarry stools. Also, denies hematemesis and coffee ground emesis. Upon presentation in the ED, he was hypotensive, and it took several liters of fluid to maintain his BP. His initial Hgb was 8.7 and dropped to 6.9 after IV resuscitation. Bedside stool guiaic revealed occult blood. He was transfused 2U PRBC and admitted to the ICU. His Hgb responded appropriately to transfusion, and he has not passed any bloody stools. Consults Consult date: 09/02/20 Requesting physician: Chino Bravo [facility] Medical History Alcohol abuse Anemia Depression Essential hypertension Hypothyroidism (11/15/12) Smoker Surgical History Repair, Tendon or Muscle (~2005) LEFT FINGER Family History Mother Diabetes Hyperlipidemia Father Personal history of malignant neoplasm Throat Sister Multiple sclerosis Brother No problems noted. Grandfather Heart disease Grandmother No problems noted. Social History Smoking/Tobacco Use Status: Current-Occasional Tobacco Type: cigarettes Years smoked: 35 Smoking risk assessment performed?: Yes Alcohol Intake: current Alcohol Intake frequency: 0-2 drinks per day Alcohol type: hard liquor Drug use: Never Substance use type: does not use Do you feel safe at home: Yes Do you feel safe in your relationship?: Yes Results Last Vital Signs Temp 97.5 F L 09/02/20 12:27 Pulse 82 09/02/20 15:01 Resp 17 09/02/20 15:01 BP 88/60 L 09/02/20 15:01 Pulse Ox 98 09/02/20 14:31 Labs Result diagrams: 09/03/20 05:17 09/03/20 05:17 Labs: Laboratory Results - last 24 hr 09/01/20 09/01/20 09/01/20 18:54 18:54 18:54 WBC 21.64 H RBC 2.43 L Hgb 8.6 L Hct 25.0 L MCV 102.9 H MCH 35.4 H MCHC 34.4 RDW 14.8 H Plt Count 283 MPV 10.8 Immature Gran % 1.3 Neutrophils % 80.2 Lymphocytes % 9.1 Monocytes % 7.5 Eosinophils % 1.2 Basophils % 0.7 Nucleated RBC % 0 Absolute Neutrophils 17.36 H Absolute Lymphocytes 1.97 Absolute Monocytes 1.62 H Absolute Eosinophils 0.26 Absolute Basophils 0.15 PT INR VBG Lactate Sodium 132 L Potassium 2.9 L Chloride 91 L Carbon Dioxide 23.0 Anion Gap 18.0 H BUN 32 H Creatinine 2.4 H Estimated GFR/1.73 m2 28.04 Glucose 139 H Calcium 9.6 Phosphorus Magnesium Total Bilirubin 0.9 AST 71 H ALT 25 Alkaline Phosphatase 82 Troponin I Total Protein 8.3 H Albumin 3.8 Lipase 155 Vitamin B12 Procalcitonin TSH Free T4 Urine Color Urine Clarity Urine pH Ur Specific [place] Urine Protein Urine Ketones Urine Blood Urine Nitrite Urine Bilirubin Urine Urobilinogen Ur Leukocyte Esterase Urine RBC Urine WBC Ur Epithelial Cells Urine Crystals Urine Bacteria Urine Casts Urine Mucus Urine Other Ur Culture Indicated? Urine Glucose Urine Opiates Screen Urine Methadone Screen Ur Barbiturates Screen Ur Tricyclics Screen Ur Amphetamines Screen U Benzodiazepines Scrn Urine Cocaine Screen Ur THC Screen Ethyl Alcohol < 3.0 COVID-19 Source SARS-CoV-2 (PCR) Patient ABO/Rh Antibody Screen Crossmatch 09/01/20 09/01/20 09/01/20 21:47 21:47 21:47 WBC RBC Hgb Hct MCV MCH MCHC RDW Plt Count MPV Immature Gran % Neutrophils % Lymphocytes % Monocytes % Eosinophils % Basophils % Nucleated RBC % Absolute Neutrophils Absolute Lymphocytes Absolute Monocytes Absolute Eosinophils Absolute Basophils PT INR VBG Lactate 1.4 Sodium Potassium Chloride Carbon Dioxide Anion Gap BUN Creatinine Estimated GFR/1.73 m2 Glucose Calcium Phosphorus Magnesium Total Bilirubin AST ALT Alkaline Phosphatase Troponin I Total Protein Albumin Lipase Vitamin B12 Procalcitonin 1.8 TSH 9.02 H Free T4 1.01 Urine Color Urine Clarity Urine pH Ur Specific [place] Urine Protein Urine Ketones Urine Blood Urine Nitrite Urine Bilirubin Urine Urobilinogen Ur Leukocyte Esterase Urine RBC Urine WBC Ur Epithelial Cells Urine Crystals Urine Bacteria Urine Casts Urine Mucus Urine Other Ur Culture Indicated? Urine Glucose Urine Opiates Screen Urine Methadone Screen Ur Barbiturates Screen Ur Tricyclics Screen Ur Amphetamines Screen U Benzodiazepines Scrn Urine Cocaine Screen Ur THC Screen Ethyl Alcohol COVID-19 Source SARS-CoV-2 (PCR) Patient ABO/Rh Antibody Screen Crossmatch 09/01/20 09/01/20 09/01/20 22:31 22:31 22:55 WBC RBC Hgb Hct MCV MCH MCHC RDW Plt Count MPV Immature Gran % Neutrophils % Lymphocytes % Monocytes % Eosinophils % Basophils % Nucleated RBC % Absolute Neutrophils Absolute Lymphocytes Absolute Monocytes Absolute Eosinophils Absolute Basophils PT INR VBG Lactate Sodium Potassium Chloride Carbon Dioxide Anion Gap BUN Creatinine Estimated GFR/1.73 m2 Glucose Calcium Phosphorus Magnesium Total Bilirubin AST ALT Alkaline Phosphatase Troponin I Total Protein Albumin Lipase Vitamin B12 Procalcitonin TSH Free T4 Urine Color Yellow Urine Clarity Sl cloudy Urine pH 6.0 Ur Specific [place] 1.020 Urine Protein 100 H Urine Ketones Negative Urine Blood Small H Urine Nitrite Negative Urine Bilirubin Negative Urine Urobilinogen 0.2 Ur Leukocyte Esterase Negative Urine RBC 3-5 H Urine WBC 0-2 Ur Epithelial Cells Moderate Urine Crystals Negative Urine Bacteria Few Urine Casts 0-2 hyaline Urine Mucus Negative Urine Other Moderate renal Ur Culture Indicated? No Urine Glucose Negative Urine Opiates Screen Negative Urine Methadone Screen Negative Ur Barbiturates Screen Negative Ur Tricyclics Screen Negative Ur Amphetamines Screen Negative U Benzodiazepines Scrn Negative Urine Cocaine Screen Negative Ur THC Screen Negative Ethyl Alcohol COVID-19 Source Nasal/nares SARS-CoV-2 (PCR) Negative Patient ABO/Rh Antibody Screen Crossmatch 09/02/20 09/02/20 09/02/20 00:15 00:15 01:10 WBC RBC Hgb 6.8 L* Hct 20.0 L* MCV MCH MCHC RDW Plt Count MPV Immature Gran % Neutrophils % Lymphocytes % Monocytes % Eosinophils % Basophils % Nucleated RBC % Absolute Neutrophils Absolute Lymphocytes Absolute Monocytes Absolute Eosinophils Absolute Basophils PT INR VBG Lactate Sodium 135 L Potassium 3.4 L Chloride 101 Carbon Dioxide 22.9 Anion Gap 11.1 H BUN 31 H Creatinine 1.9 H Estimated GFR/1.73 m2 36.72 Glucose 111 H Calcium 7.8 L Phosphorus Magnesium Total Bilirubin AST ALT Alkaline Phosphatase Troponin I < 0.05 Total Protein Albumin Lipase Vitamin B12 Procalcitonin TSH Free T4 Urine Color Urine Clarity Urine pH Ur Specific [place] Urine Protein Urine Ketones Urine Blood Urine Nitrite Urine Bilirubin Urine Urobilinogen Ur Leukocyte Esterase Urine RBC Urine WBC Ur Epithelial Cells Urine Crystals Urine Bacteria Urine Casts Urine Mucus Urine Other Ur Culture Indicated? Urine Glucose Urine Opiates Screen Urine Methadone Screen Ur Barbiturates Screen Ur Tricyclics Screen Ur Amphetamines Screen U Benzodiazepines Scrn Urine Cocaine Screen Ur THC Screen Ethyl Alcohol COVID-19 Source SARS-CoV-2 (PCR) Patient ABO/Rh O Positive Antibody Screen Negative Crossmatch See Detail 09/02/20 09/02/20 09/02/20 06:41 06:41 06:41 WBC 9.19 D RBC 2.47 L Hgb 8.7 L Hct 25.4 L D MCV 102.8 H MCH 35.2 H MCHC 34.3 RDW 15.3 H Plt Count 159 D MPV 10.6 Immature Gran % 0.5 Neutrophils % 74.2 Lymphocytes % 12.6 Monocytes % 8.8 Eosinophils % 3.2 Basophils % 0.7 Nucleated RBC % 0 Absolute Neutrophils 6.82 H Absolute Lymphocytes 1.16 L Absolute Monocytes 0.81 H Absolute Eosinophils 0.29 Absolute Basophils 0.06 PT INR VBG Lactate Sodium 137 Potassium 3.3 L Chloride 102 Carbon Dioxide 23.9 Anion Gap 11.1 H BUN 29 H Creatinine 2.0 H Estimated GFR/1.73 m2 34.61 Glucose 109 H Calcium 7.6 L Phosphorus Magnesium Total Bilirubin 0.6 AST 49 H ALT 20 Alkaline Phosphatase 63 Troponin I < 0.05 Total Protein 6.2 L Albumin 2.7 L Lipase Vitamin B12 Procalcitonin TSH Free T4 Urine Color Urine Clarity Urine pH Ur Specific [place] Urine Protein Urine Ketones Urine Blood Urine Nitrite Urine Bilirubin Urine Urobilinogen Ur Leukocyte Esterase Urine RBC Urine WBC Ur Epithelial Cells Urine Crystals Urine Bacteria Urine Casts Urine Mucus Urine Other Ur Culture Indicated? Urine Glucose Urine Opiates Screen Urine Methadone Screen Ur Barbiturates Screen Ur Tricyclics Screen Ur Amphetamines Screen U Benzodiazepines Scrn Urine Cocaine Screen Ur THC Screen Ethyl Alcohol COVID-19 Source SARS-CoV-2 (PCR) Patient ABO/Rh Antibody Screen Crossmatch 06/17/21 06/17/21 06/17/21 06:41 06:41 06:41 WBC RBC Hgb Hct MCV MCH MCHC RDW Plt Count MPV Immature Gran % Neutrophils % Lymphocytes % Monocytes % Eosinophils % Basophils % Nucleated RBC % Absolute Neutrophils Absolute Lymphocytes Absolute Monocytes Absolute Eosinophils Absolute Basophils PT 12.1 H INR 1.2 H VBG Lactate Sodium Potassium Chloride Carbon Dioxide Anion Gap BUN Creatinine Estimated GFR/1.73 m2 Glucose Calcium Phosphorus 2.6 Magnesium 1.6 L Total Bilirubin AST ALT Alkaline Phosphatase Troponin I Total Protein Albumin Lipase Vitamin B12 975 Procalcitonin TSH Free T4 Urine Color Urine Clarity Urine pH Ur Specific [place] Urine Protein Urine Ketones Urine Blood Urine Nitrite Urine Bilirubin Urine Urobilinogen Ur Leukocyte Esterase Urine RBC Urine WBC Ur Epithelial Cells Urine Crystals Urine Bacteria Urine Casts Urine Mucus Urine Other Ur Culture Indicated? Urine Glucose Urine Opiates Screen Urine Methadone Screen Ur Barbiturates Screen Ur Tricyclics Screen Ur Amphetamines Screen U Benzodiazepines Scrn Urine Cocaine Screen Ur THC Screen Ethyl Alcohol COVID-19 Source SARS-CoV-2 (PCR) Patient ABO/Rh Antibody Screen Crossmatch 09/02/20 09/02/20 09/02/20 06:42 14:10 Unknown WBC RBC Hgb 8.9 L Cancelled Hct 26.1 L Cancelled MCV MCH MCHC RDW Plt Count MPV Immature Gran % Neutrophils % Lymphocytes % Monocytes % Eosinophils % Basophils % Nucleated RBC % Absolute Neutrophils Absolute Lymphocytes Absolute Monocytes Absolute Eosinophils Absolute Basophils PT INR VBG Lactate 1.1 Sodium Potassium Chloride Carbon Dioxide Anion Gap BUN Creatinine Estimated GFR/1.73 m2 Glucose Calcium Phosphorus Magnesium Total Bilirubin AST ALT Alkaline Phosphatase Troponin I Total Protein Albumin Lipase Vitamin B12 Procalcitonin TSH Free T4 Urine Color Urine Clarity Urine pH Ur Specific [place] Urine Protein Urine Ketones Urine Blood Urine Nitrite Urine Bilirubin Urine Urobilinogen Ur Leukocyte Esterase Urine RBC Urine WBC Ur Epithelial Cells Urine Crystals Urine Bacteria Urine Casts Urine Mucus Urine Other Ur Culture Indicated? Urine Glucose Urine Opiates Screen Urine Methadone Screen Ur Barbiturates Screen Ur Tricyclics Screen Ur Amphetamines Screen U Benzodiazepines Scrn Urine Cocaine Screen Ur THC Screen Ethyl Alcohol COVID-19 Source SARS-CoV-2 (PCR) Patient ABO/Rh Antibody Screen Crossmatch
[2020-09-02] MEDS: Sucralfate 1 GM TAB PO ×2 (16:54→22:00)
--- NOTE | 2020-09-02 18:25 | WOUNDCONS ---
- If Service Date Differs Date of service: 09/02/20 Time of Service: 17:00 Wound Initial Evaluation Narrative: 09/02/20 Consult placed for right dorsal foot wound. Patient stated he shut the toe in a storm door like a month or three weeks ago. The right great toe is reddened with scattered raised scabs which are intact. No drainage noted. Toe has no increased warmth. Positive dorsalis pedis pulses on bilateral feet noted. Toenails are hypertrophic. In between toes is intact with no other wounds noted. There is a referral to podiatry at this time for toenail trimming. - Wound Right Great toe Wound Length: 2.2 cm Wound Width: 3 cm Wound Drainage Amount: None Wound Drainage Odor: None/Absent Wound area cleansed with debrisoft with minimal removal of tissue. Foot washed with soap and water including in between toes. Patient denies pain with cleansing. - Recomendation Recomendation:: Right great toe: Recommend follow up with podiatry.
[2020-09-02] MEDS: Normal Saline 1,000 ML 150 ML IV (19:42)
[2020-09-03] VITALS (30 sets, daily range): BP systolic 91–120; BP diastolic 68–89; PULSE 52–79; RESP 15–23; TEMP 36.2–36.6; O2SAT 96–98
[2020-09-03] MEDS: Normal Saline 1,000 ML 150 ML IV (02:01)
[2020-09-03] MEDS: cefTRIAXone 2 GM/50 ML BAG IVPB (03:56)
[2020-09-03 05:34] LABS: HCT 26.1 % (40.0-50.0); HGB 8.6 g/dL (13.5-17.5)
[2020-09-03 05:47] LABS: Anion Gap 10.6 mmol/L (3-11); BUN 24 mg/dL (7-18); CO2 21.4 mmol/L (21.0-32.0); CREATININE 1.6 mg/dL (0.70-1.30); Calcium 7.8 mg/dL (8.5-10.1); Chloride 107 mmol/L (98-107); Estimated GFR 44.78 (mL/min/1.73m2); Glucose 124 mg/dL (74-106); Potassium 3.5 mmol/L (3.5-5.1); Sodium 139 mmol/L (136-145)
[2020-09-03] MEDS: Levothyroxine 125 MCG TAB PO (05:47)
[2020-09-03] MEDS: Potassium Chloride 20 MEQ TABCR PO (08:37)
[2020-09-03] MEDS: Sucralfate 1 GM TAB PO ×2 (08:37→11:43)
[2020-09-03] MEDS: Vitamin E 400 UNITS CAP PO (08:38)
[2020-09-03] MEDS: Multivitamin TAB 1 TAB PO (08:38)
[2020-09-03] MEDS: chlordiazePOXIDE 25 MG CAP PO (08:38)
[2020-09-03] MEDS: Folic Acid 1 MG TAB PO (08:38)
[2020-09-03] MEDS: Sertraline 50 MG TAB 100 MG PO (08:38)
[2020-09-03] MEDS: Thiamine 100 MG TAB PO (08:38)
--- NOTE | 2020-09-03 10:25 | IN_ITS ---
Date of service: 09/03/20 Time of Service: 10:25 PT Notes Visit Reasons: Hypotention,Dehydration,Alcohol Abuse Physical Therapy Inpatient Initial Evaluation Date: 09/03/2020 Referring Doctor: Mannie Ross MD PT Orders: PT CONSULT: Eval/Treat Precautions: Fall. Standard. Activity as tolerated. Legally blind. Patient Profile/Admitting Diagnosis: Guy is a 55-year-old male who presented to the ED on 09/01/2020 due to generalized weakness, dizziness, lack of appetite, and chronic alcoholism. Patient is diagnosed with hypotension, anemia due to chronic blood loss, EtOH abuse, kidney injury, hypokalemia, cellulitis of toe, and abrasion of R foot/toe. PMHX: Medical History Alcohol abuse Anemia Depression Essential hypertension Hypothyroidism (11/15/12) Optic neuropathy Smoker Surgical History Repair, Tendon or Muscle (~2005) LEFT FINGER Social History/Home Situation: Lives alone in a private home with 4 steps to enter with rails on both sides. Independent with all aspects of ADLs but requires transportation assistance as he no longer drives. Uses single-point cane for long distances. He has friends and family who are able to provide support as needed. States that he has a brace for his right foot as he has chronic foot drop that he left at home. Equipment Owned/DME: Single-point cane Subjective: Guy states that he is ready to go. He feels a lot better compared to when he first came in. He is agreeable to home health PT for continued strengthening. Objective: General Observation: Telemetry monitoring in place. IV access in right UEs. [place] catheter in place. Cellulitis of right big toe Mental Status: Alert and oriented as to person, place, time, and purpose. Able to pay attention, focus, and respond appropriately. Pain: 0/10 Vital Signs: Heart rate ranged from 72 bpm to 98 bpm throughout ambulation activity ROM: Right Upper Extremity: Shoulder Flexion WFL. Shoulder abduction WFL. Shoulder ER/IR WFL. Elbow flexion WFL. Forearm pronation/supination WFL. Wrist flexion WFL. Opening and closing of hand WFL. Left Upper Extremity: Shoulder Flexion WFL. Shoulder abduction WFL. Shoulder ER/IR WFL. Elbow flexion WFL. Forearm pronation/supination WFL. Wrist flexion WFL. Opening and closing of hand WFL. Right Lower Extremity: Hip flexion WFL. Hip abduction WFL. Hip ER/IR WFL. Knee flexion WFL. Knee extension. Ankle dorsiflexion absent. Ankle plantarflexion/inversion WFL. Left Lower Extremity: Hip flexion WFL. Hip abduction WFL. Hip ER/IR WFL. Knee flexion WFL. Knee extension. Ankle dorsiflexion WFL. Ankle plantarflexion WFL. Strength: Right Upper Extremity: Shoulder flexors 4/5. Shoulder abductors 4/5. Shoulder ER 4/5. Shoulder IR 4/5. Forearm pronators 5/5. Forearm supinators 5/5. Elbow flexors 5/5. Elbow extensors 5/5. Director Community Health Nursing strong. Left Upper Extremity: Shoulder flexors 4/5. Shoulder abductors 4/5. Shoulder ER 4/5. Shoulder IR 4/5. Forearm pronators 5/5. Forearm supinators 5/5. Elbow flexors 5/5. Elbow extensors 5/5. Director Community Health Nursing strong. Right Lower Extremity: Hip flexors 4/5. Hip abductors 4/5. Hip external rotators 4/5. Hip internal rotators 5/5. Knee flexors 5/5. Knee extensors 4/5. Ankle dorsiflexors0/5. Ankle plantarflexors/invertors 5/5. Left Lower Extremity: Hip flexors 4/5. Hip abductors 4/5. Hip external rotators 4/5. HIp internal rotators 5/5. Knee flexors 5/5. Knee extensors 4/5. Ankle dorsiflexors/evertors 5/5. Ankle plantarflexors/invertors 5/5. Bed Mobility/Transfers: Sit to stand standby assist Stand to sit standby assist Bed to chair standby assist Gait: Distance of 350 feet requiring contact-guard assist. Right step positive gait. Step height exaggerated on right to compensate for foot drop. No LOB. No SOB. Denies headache, chest pain, and lightheadedness throughout ambulation activity. Balance: Static Sitting: Normal Dynamic Sitting: Normal Static Standing: Fair Dynamic Standing: Fair Special Tests: Mobility Limitations Standardized Measure [facility] 6 clicks Basic Mobility Inpatient Short Form: Raw Score: 22 CMS Score: 21% deficit Informed Consent/Education: Patient was instructed in purpose of PT consult and plan of care. Agreeable to proceed with established PT POC to achieve personal goals. Assessment: Guy requires the use of a front wheeled walker to increase activity tolerance and increased ability of mobility ADL performance. He will be progressed to using a single-point cane while on admission in order to prepare prepare patient for discharge to home when cleared by hospitalist. Patient presents with clinical signs and symptoms consistent with current/admitting diagnoses that have resulted to mobility limitations, gait instability, generalized weakness, and impairment of motor control as demonstrated by the following impairment level findings: 1. Decreased strength to BUE/LE major muscle groups 2. Impaired standing balance 3. Impaired activity tolerance 4. Chronic limitation of joint range of motion in right ankle for dorsiflexion Impairments are contributing to the following functional limitations: 1. Inability to safely ambulate without assistive device and physical assistance 2. Increase completion time for mobility ADL performance 3. Increased fall risk 4. Inability to negotiate steps alone safely Patient is assessed as a 91358 moderate complexity based on the following: History: 55 [id number] with past medical history as indicated above Examination: Demonstrable impairment in strength, balance, and mobility level with underlying impairments and functional limitations as exhibited above as well as deficit score of 21% utilizing the [facility] Mobility Inpatient Short Form Presentation: Evolving Decision Makin moderate complexity Goals: Goals X1 week 1. Supine-Sit independent 2. Sit-Supine independent 3. Sit-Stand independent 4. Stand-Sit independent 5. Bed-Chair independent 6. Chair-Bed independent 7. Independent gait on level surface with use of single-point cane 500 for at least feet without report of pain nor dyspnea 8. Independent stair negotiation while holding onto B rails for at least 5 steps without report of pain nor dyspnea 9. Good static and dynamic standing balance/tolerance Plan of Care/Treatment Plan: 1-2x/day, 7 days/week x 1 week. Plan of care has been reviewed with the [facility] providing the service under Physical Therapy direction. Initiate Physical Therapy intervention for pain management as needed, strengthening, bed mobility, transfers, gait, stairs, balance training, and use of assistive device. DISCHARGE RECOMMENDATIONS: Home when medically cleared by hospitalist. Patient will benefit from home health PT services in order to progress mobility level using least restrictive assistive ambulatory device, assess home safety, identify additional equipment needs, and establish a functional maintenance program that will increase ability of patient to remain at home. TREATMENT CODE/TIME: 85569 x 28 minutes beginning at 10:25 AM. Thank you for the opportunity to participate in the care of this patient. Cheryl Lawson PT, DPT, CLT [facility] [place], [place]
[2020-09-03 11:02] LABS: Homocysteine 29.1 umol/L (5.0-13.9)
[2020-09-03] MEDS: Pantoprazole 20 MG TABCR PO (11:42)
[2020-09-03] MEDS: Mupirocin 2% 15 GM TUBE TP ×2 (11:43→15:03)
--- NOTE | 2020-09-03 13:28 | PDOC.CMPRO ---
- If Service Date Differs Date of service: 09/03/20 Time of Service: 13:34 Care Management Progress Note S/O: Guy continues to be closely monitored in the ICU for alcohol withdrawal, he is on scheduled librium which per MD appears to be managing his symptoms without the need of additional medication. He will be transitioned to M/S status today. CM continues to follow. A: 55 year old male admitted to [facility] for hypotension, dehydration, alcohol use disorder P: Guy will likely be discharged home with new orders for home health PT (CM notified [email or web address]), and follow up with podiatry for great toe wound. He will also follow up with his PCP, possibly GI, and transport via private vehicle with family. CM will continue to support Guy and his discharge planning concerns.
--- NOTE | 2020-09-03 13:34 | DSE_ITS ---
Date of service: 09/03/20 Time of Service: 13:34 DS: Diagnosis Discharge Diagnosis (1) Abrasion foot/toe: Status: Acute (2) Anemia due to chronic blood loss: Status: Acute (3) Hypotension: Status: Acute (4) Alcohol abuse: Status: Chronic (5) Acute kidney injury: Status: Acute (6) Hypokalemia: Status: Acute (7) DVT prophylaxis: Status: Acute Discharge Plan Disposition Patient Disposition: HOME Condition: Fair Discharge Details Reason For Visit: Hypotention,Dehydration,Alcohol Abuse Admit Date/Time: 09/01/20 21:37 Admit Provider: Chino Bravo Attending Provider: Chino Bravo Primary Care Provider: Elias Mattson Hospital Course Hospital Course: 55 yr old male alcoholic (usually drinks at least 10 whiskey/diet Coke drinks per day) who cut down over past 3 weeks to couple drinks per day has had depressed appetite, poor intake for past 5 days along w/ generalized weakness, dizziness. Last alcoholic drink yesterday. No hx of seizures, or alcohol withdrawal. He denies any dyspnea, chest pain/pressure, diarrhea, fever or rigors. Upon arrival to the ER he was very hypotensive w/ SBP 70's to 80 and DBP in 40's to 50's. HR only in the 70's to 80's. Patient was given total of 3 liters of iv fluids in the ER. Diagnostic workup included labs: CBC ( WBC 21 ,640, Hb 8.6, Hct 25% w/ macrocytic indices, MCV 102; normal platelets 283,000); prior Hb 12.7 gm on 05/20/2020. CMP (low K+ 2.9, BUN 32, creatinine 2.5, AG 18, LFT: AST 71), troponin was not done but has since been ordered and came back normal at <0.05. TSH 9.02 (hx of hypothryoid w/ noncompliance), lactate 1.4, and procalcitonin 1.8. UA was rather unremarkable (cloudy SG 1.020, 100 mg/dL protein but neg. for ketones, nitrites, and leukocyte esterase and only 0-2 WBC and few bacteria, but moderate renal cells. Patient's rectal exam was positive for heme but not grossly melenotic nor hematochezia. Blood cultures were obtained but he was not started on antibiotics in the ER. Upon arrival to the ER he remained moderately hypotensive. Repeat labs were done including a troponin now was added. Hb returned lower at 6.8 gm and HCT 20%. He was typed and screened and cross matched for 2 units of PRBC. He was started on protonix. It is presumed that he has either an alcoholic gastritis/duodenitis or PUD, although an occult malignancy has not been excluded. Radiologic imaging included non-contrast CT chest, abdomen, pelvis. Chest CT demonstrated peribronchial thickening but no bronchiectasis. He has scattered tree in bud opacities suggestive of mild infectious small airway disease and 5 mm x 3 mm LLL nodule and scattered pleuroparenchymal scarring. Also of note patient couple weeks ago got his right foot caught under the screen door and suffered and abrasion over the dorsum of his right foot at the base of his great toe. His Hgb remained stable. Gen Surg consulted and plans outpt endoscopy to evaluate for GI source of anemia. He was in [facility] in 2017 with a significant anemia with a Hgb down to 2.4. He did not f/u for recommended endoscopy after that d/c. It was stressed that it would be very important for him to undergo endoscopy. He will be discharged on pantoprazole 40mg daily. He did receive IV Rocephin. No respiratory symptoms noted. It was determined that he did not have a cellulitis of the R great toe where it was abraded. Bactroban was prescribed while in the hospital. F/U with Dr Delgado, podiatry, scheduled. He was evaluated by PT when noted to be unsteady when ambulating. They suggested home health PT and patient was agreeable. He was given a lab slip for a CBC to be drawn the Sunday following d/c, 09/06/2120 Follow up with PCP in 1-2 weeks. Follow up with Gen Surg in 1-2 weeks for evaluation and to schedule upper and lower endoscopy. Home Meds and New Rx's Prescriptions: New thiamine mononitrate (vit B1) [Vitamin B-1 (mononitrate)] 100 mg Tablet 100 mg PO DAILY Qty: 0 RF: 0 pantoprazole 40 mg tablet,delayed release (DR/EC) 40 mg PO DAILY Qty: 30 RF: 0 pantoprazole 40 mg tablet,delayed release (DR/EC) 40 mg PO DAILY Qty: 30 RF: 0 Continued multivitamin Tablet 1 tab PO DAILY RF: 0 sertraline 100 mg tablet 100 mg PO DAILY Qty: 90 RF: 3 vitamin E 200 unit capsule 200 unit PO DAILY Qty: 90 RF: 3 levothyroxine 125 mcg tablet 125 mcg PO DAILY Qty: 90 RF: 0 Discharge Instructions Instructions: Anemia (DC) Referrals: Ronnell Delgado DPM [[facility] STAFF PHYSICIAN] - (debridement of toenail) Elias Mattson [Primary Care Provider] - 09/08/20 2:00 pm (Debridement of Right Great Toe. Guy Marrero to call Dr. Delgado to make followup appointment at [phone]) Activity:: Activity as Tolerated Equipment/Supplies:: No Equipment Needed Diet:: Normal Diet Discharge Orders Discharge Orders: Discharge Order (Routine); Ordered 09/03/20 Ordered By: Mannie Ross Other Ambulatory Orders: Complete Blood Count w/Diff (Routine) Timeframe: 3 Days Location: None Selected Ordered By: Mannie Ross Discharge Data Discharge Date/Time-TO BE ENTERED AT DEPARTURE: 09/03/20 16:39 DS: Summary Time Spent with Patient providing and/or coordinating discharge services: Greater than 30 minutes Status at Discharge Functional status at discharge: independent ambulation Overall status at discharge: patient is progressing back to baseline Mental Status: mental status grossly normal Speech and Movement: other (normal speech) Mood: congruent mood Affect: normal affect Exam Const General: cooperative and no acute distress Nutritional Appearance: thin Orientation: alert and oriented x3 Resp Effort & Inspection: normal respiratory effort Auscultation: clear to auscultation bilaterally and diminished lung sounds Cardio Rate: regular rate Rhythm: regular rhythm Heart Sounds: S1 normal and S2 normal GI Inspection: normal to inspection Palpation: soft and nontender Skin General skin exam: no rashes or lesions noted Extrem General: no pedal edema and no calf tenderness Psych Mental Status: mental status grossly normal Mood: congruent mood Affect: normal affect DS: Data Vitals/I&O Vitals and I&O: Vital Signs Temperature 36.2 C L 09/03/20 11:49 Temperature Source Temporal Artery Scan 09/03/20 11:49 Pulse 61 09/03/20 10:01 Pulse 66 09/03/20 10:34 Respiratory Rate 20 09/03/20 10:34 Respiratory Effort Non-Labored 09/03/20 11:49 Respiratory Depth Normal 09/03/20 11:49 Respiratory Pattern Normal 09/03/20 11:49 Blood Pressure 91/68 L 09/03/20 10:34 Blood Pressure Mean 73 09/03/20 10:34 Blood Pressure Position Sitting 09/03/20 11:49 Pulse Oximetry 96 09/03/20 04:31 Oxygen Delivery Method Room Air 09/03/20 11:49 Oxygen Flow Rate 0 09/03/20 11:49 Pain Level 0 09/03/20 11:49 Intake & Output 09/02/20 09/03/20 09/03/20 23:59 11:59 23:59 Intake Total 1182 / 4248.2 2422.5 / 2422.5 Output Total 725 / 1140 1250 / 1250 Balance 457 / 3108.2 1172.5 / 1172.5 Weight 69.1 kg Intake: IV 402 / 2288.2 1782.5 / 1782.5 Oral 780 / 1260 640 / 640 Output: Urine 725 / 1140 1250 / 1250 Other: Urine Color Yellow Yellow Urine Appearance Clear Comment pt has indwelling shahid cath Shahid has been removed. Stool Occult Blood Negative Stool Size Smear Stool Characteristics Soft Data Completed and Pending Labs on day of discharge: Labs from last 24 hours 09/03/20 09/03/20 09/02/20 05:17 05:17 14:10 Hgb 8.6 L 8.9 L Hct 26.1 L 26.1 L Sodium 139 Potassium 3.5 Chloride 107 Carbon Dioxide 21.4 Anion Gap 10.6 BUN 24 H Creatinine 1.6 H Estimated GFR/1.73 m2 44.78 Glucose 124 H Calcium 7.8 L Homocysteine 09/02/20 06:41 Hgb Hct Sodium Potassium Chloride Carbon Dioxide Anion Gap BUN Creatinine Estimated GFR/1.73 m2 Glucose Calcium Homocysteine 29.1 H Preliminary micro results at discharge 09/01/20 22:31 Urine Culture - Preliminary Urine - Cath Shahid Indwelling 09/01/20 22:00 Blood Culture - Preliminary Blood NO GROWTH 24 HOURS 09/01/20 21:47 Blood Culture - Preliminary Blood NO GROWTH 24 HOURS PFSH Medical History Alcohol abuse Anemia Depression Essential hypertension Hypothyroidism (11/15/12) Optic neuropathy Smoker Surgical History Repair, Tendon or Muscle (~2005) LEFT FINGER Family History Mother Diabetes Hyperlipidemia Father Personal history of malignant neoplasm Throat Sister Multiple sclerosis Brother No problems noted. Grandfather Heart disease Grandmother No problems noted. Social History Smoking/Tobacco Use Status: Current-Occasional Tobacco Type: cigarettes Years smoked: 35 Smoking risk assessment performed?: Yes Alcohol Intake: current Alcohol Intake frequency: 0-2 drinks per day Alcohol type: hard liquor Drug use: Never Substance use type: does not use Do you feel safe at home: Yes Do you feel safe in your relationship?: Yes
--- NOTE | 2020-09-03 13:45 | PDOC.HHF2F ---
Home Health Certification Home Health Certification: 1. Encounter Date and Reason I certify that Guy Marrero was seen by Mannie Ross MD on 09/03/20 and that I had a [id number] encounter with this patient that meets the physician face to face encounter requirements. 2. Clinical Findings Supporting Skilled Need and Homebound Status I certify that home health services are medically necessary, include either intermittent long-term and/or physical/speech therapy, and that this patient is homebound in that absences from the home require considerable and taxing effort and are infrequent or of short duration, or are attributable to the need to receive medical care. [X] (a) Attached documentation from encounter provides clinical findings supporting skilled need and homebound status (including what assistance patient requires to leave the home). The encounter with the patient was in whole, or in part, for the following medical condition, which is the primary reason for home health care: Hypotention,Dehydration,Alcohol Abuse Prison: Physical Therapy: Evaluate and treat for generalized weakness and unstable gait. Speech Therapy: Homebound: d/t visual impairment and current generalized weakness. Requires another person to assist outside of the home. 3. Certification and Authentication I certify that I composed the above information based on my clinical judgement relating to this patient's medical condition and, if applicable, clinical findings communicated to me by the NPP or inpatient physician who performed the Home Health Referral. All further orders will be obtained through ____Elias Mattson (Community Based Physician - PCP)
--- NOTE | 2020-09-03 14:57 | PT.INTREAT ---
Date of service: 09/03/20 Time of Service: 13:25 PT Notes Visit Reasons: Hypotention,Dehydration,Alcohol Abuse Inpatient Physical Therapy Treatment Note [facility] Date: 09/03/2020 PRECAUTIONS: Fall SUBJECTIVE: Guy states that he feels good and would like to go home today. He states that he would use a FWW at home if he had one there. OBJECTIVE: Issued FWW to patient. Patient completed [employer] form. Set FWW to appropriate height for safe patient use. PAIN: No c/o pain BED MOBILITY/TRANSFERS Sit-stand: I Stand-sit: I GAIT Assistive Device: FWW Weight bearing: Full Assist: S Distance: 300' x2 Deviation: Steppage gait on R due to drop-foot STAIRS: Up/down 6x4 and 4x6 using B rails and a step-over pattern independently ASSESSMENT: Patient demonstrates independence with transfers and stair negotiation at this time. He demonstrates steppage gait on R due to drop foot. PLAN: Patient to discharge to home later today, per provider, with PT follow up. TREATMENT CODE/TIME: 25 minutes; [id number] x2 (13:25)
[2020-09-07 12:15] LABS: Methylmalonic Acid 0.25 nmol/mL (<=0.40)
--- NOTE | 2020-09-08 09:37 | PT.INDS ---
Date of service: 09/08/20 Time of Service: 09:37 PT Notes Visit Reasons: Hypotention,Dehydration,Alcohol Abuse Treatment Date: 09/03/2020 Referring Doctor: Mannie Ross MD PT Orders: PT CONSULT: Eval/Treat Precautions: Fall. Standard. Activity as tolerated. Legally blind. THIS DOCUMENT SERVES A SUMMARY OF CARE. NO PT SERVICES WERE PROVIDED ON THIS DATE. Patient Profile/Admitting Diagnosis: Guy is a 55-year-old male who presented to the ED on 09/01/2020 due to generalized weakness, dizziness, lack of appetite, and chronic alcoholism. Patient is diagnosed with hypotension, anemia due to chronic blood loss, EtOH abuse, kidney injury, hypokalemia, cellulitis of toe, and abrasion of R foot/toe. He received 2 sessions of PT on 09/03/20, after which he was discharged home with PT. PMHX: Medical History Alcohol abuse Anemia Depression Essential hypertension Hypothyroidism (11/15/12) Optic neuropathy Smoker Surgical History Repair, Tendon or Muscle (~2005) LEFT FINGER Social History/Home Situation: Lives alone in a private home with 4 steps to enter with rails on both sides. Independent with all aspects of ADLs but requires transportation assistance as he no longer drives. Uses single-point cane for long distances. He has friends and family who are able to provide support as needed. States that he has a brace for his right foot as he has chronic foot drop that he left at home. Equipment Owned/DME: Single-point cane Subjective: None obtained, as patient had been discharged at time of documentation. Objective: ROM: Right Upper Extremity: Shoulder Flexion WFL. Shoulder abduction WFL. Shoulder ER/IR WFL. Elbow flexion WFL. Forearm pronation/supination WFL. Wrist flexion WFL. Opening and closing of hand WFL. Left Upper Extremity: Shoulder Flexion WFL. Shoulder abduction WFL. Shoulder ER/IR WFL. Elbow flexion WFL. Forearm pronation/supination WFL. Wrist flexion WFL. Opening and closing of hand WFL. Right Lower Extremity: Hip flexion WFL. Hip abduction WFL. Hip ER/IR WFL. Knee flexion WFL. Knee extension. Ankle dorsiflexion absent. Ankle plantarflexion/inversion WFL. Left Lower Extremity: Hip flexion WFL. Hip abduction WFL. Hip ER/IR WFL. Knee flexion WFL. Knee extension. Ankle dorsiflexion WFL. Ankle plantarflexion WFL. Strength: Right Upper Extremity: Shoulder flexors 4/5. Shoulder abductors 4/5. Shoulder ER 4/5. Shoulder IR 4/5. Forearm pronators 5/5. Forearm supinators 5/5. Elbow flexors 5/5. Elbow extensors 5/5. Wireless Sales Expert strong. Left Upper Extremity: Shoulder flexors 4/5. Shoulder abductors 4/5. Shoulder ER 4/5. Shoulder IR 4/5. Forearm pronators 5/5. Forearm supinators 5/5. Elbow flexors 5/5. Elbow extensors 5/5. Wireless Sales Expert strong. Right Lower Extremity: Hip flexors 4/5. Hip abductors 4/5. Hip external rotators 4/5. Hip internal rotators 5/5. Knee flexors 5/5. Knee extensors 4/5. Ankle dorsiflexors0/5. Ankle plantarflexors/invertors 5/5. Left Lower Extremity: Hip flexors 4/5. Hip abductors 4/5. Hip external rotators 4/5. HIp internal rotators 5/5. Knee flexors 5/5. Knee extensors 4/5. Ankle dorsiflexors/evertors 5/5. Ankle plantarflexors/invertors 5/5. Bed Mobility/Transfers: Sit to stand: Independent Stand to sit : Independent Bed to chair: Supervision Gait: Patient demonstrated ability to ambulate 300'x2 with FWW and supervision only. Balance: Static Sitting: Normal Dynamic Sitting: Normal Static Standing: Fair Dynamic Standing: Fair Assessment: Patient participated in 2 PT sessions on 09/03/20. He required use of FWW for safe ambulation, and was issued a FWW prior to discharge. He demonstrated sufficient independence and safety to allow for transition back home with recommendation for PT for continued strengthening, gait training, and balance retraining. Goals: Goals X1 week 1. Supine-Sit independent (MET) 2. Sit-Supine independent(MET) 3. Sit-Stand independent(MET) 4. Stand-Sit independent(MET) 5. Bed-Chair independent (not met, but able to complete with supervision) 6. Chair-Bed independent(not met, but able to complete with supervision) 7. Independent gait on level surface with use of single-point cane 500 for at least feet without report of pain nor dyspnea (not met, but demonstrated safety with community distances with FWW, which was issued prior to discharge) 8. Independent stair negotiation while holding onto B rails for at least 5 steps without report of pain nor dyspnea (MET) 9. Good static and dynamic standing balance/tolerance (not met) Plan of Care/Treatment Plan: Discharge from PT in acute care setting. DISCHARGE RECOMMENDATIONS: Home when medically cleared by hospitalist. Patient will benefit from home health PT services in order to progress mobility level using least restrictive assistive ambulatory device, assess home safety, identify additional equipment needs, and establish a functional maintenance program that will increase ability of patient to remain at home. TREATMENT CODE/TIME: No PT services provided on this date Raya Rivera, PT, DPT [facility] [place], [place]
== END 2020-09-03 16:39 | disposition home or self-care (01) | DRG 812 ==
LOC: ER 22:03 → ICU 23:02
PROVIDERS: Family Medicine; Admitting Provider Internal Medicine; Emergency Provider Physician Assistant; PCP Family Medicine; Visit Provider Internal Medicine
DX: D50.0 Iron deficiency anemia secondary to blood loss (chronic) (principal); N17.9 Acute kidney failure, unspecified; H46.9 Unspecified optic neuritis; E86.1 Hypovolemia; I95.89 Other hypotension; F10.10 Alcohol abuse, uncomplicated; E87.6 Hypokalemia; I10 Essential (primary) hypertension; F17.210 Nicotine dependence, cigarettes, uncomplicated; R91.1 Solitary pulmonary nodule; E03.9 Hypothyroidism, unspecified; Z91.14 Patient's other noncompliance with medication regimen; Z20.822 Contact with and (suspected) exposure to COVID-19; B35.1 Tinea unguium; S90.811A Abrasion, right foot, initial encounter; K29.20 Alcoholic gastritis without bleeding; K27.9 Peptic ulcer, site unspecified, unspecified as acute or chronic, without hemorrhage or perforation
CPT/HCPCS: 36415; 36416; 36430; 51702; 71250; 80048; 80053; 80186; 80307; 82962; 83090; 83690; 84145; 86850; 86900; 86901; 86920; 87040; 87635; 93005; 93306; 96361; 96365; 96366; 96368; 97162; 97530; 99291; 99292; 74176; 80320; 81003; 81015; 82607; 83605; 83735; 84100; 84439; 84443; 84484; 85014; 85018; 85025; 85610; 87086; 93010; 99223; 99233; 99239; J0696; J3480; P9016

== ENCOUNTER 2021-04-01 02:51 | Outpatient (CLI) | payer MEDICARE, SELFPAY ==
--- NOTE | 2021-04-01 13:10 | DI.CT_ITS ---
Exam(s) CT CHEST WO EXAM: CT CHEST WO CLINICAL HISTORY: reassess LLL nodule,R91.1. TECHNIQUE: Multi planar reconstructions were performed. CONTRAST MATERIAL: None COMPARISON: CT CT CHEST/ABD/PEL WO from 09/01/2020 FINDINGS: CHEST: LUNGS: Previously described 4 x 3 millimeter noncalcified nodule in the left lower lobe is unchanged. No new additional left lung findings nor pleural effusion. No focal findings in the opposite-right lung. No right pleural effusion. No significant focal findings in the trachea and mainstem bronchi . MEDIASTINUM: There is no obvious hilar nor mediastinal adenopathy. Visualized thyroid unremarkable.No obvious axillary adenopathy CARDIAC: Heart size is normal. There is no pericardial effusion.Caliber of the thoracic aorta is wit hin normal limits. VISUALIZED UPPER ABDOMEN:No adrenal masses. Small gallstones on the dependent wall of the gallbladde r lumen are noted. On the lower most image of this study (series 2/image 71) there is a 3 millimeter calcific density in the lateral aspect of the pancreatic head, possibly within the CBD. CBD is not dilated. OSSEOUS: No significant osseous lesions.T12 Schmorl's node invagination is are unchanged.. IMPRESSION: 1. Stable appearance of the solitary 4 millimeter nodule in the left lung-left lower lobe, unchanged. No new pulmonary findings nor pleural effusions and no evidence of intrathoracic adenopathy. RADIATION DOSE DELIVERED: 436.82mGy.cm Total DLP DATA REPOSITORY: All CT scans at this facility are submitted to the National Radiology Data Registry (NRDR) Dose Index Registry (DIR) with the [employer] (ACR). RADIATION OPTIMIZATION: All CT scans at this facility use at least one of these dose optimization te chniques: automated exposure control; mA and/or kV adjustment per patient size (includes targeted exa ms where dose is matched to clinical indication); or iterative reconstruction.
== END 2021-04-01 03:11 ==
PROVIDERS: PCP Family Medicine; Visit Provider Family Medicine
DX: R91.1 Solitary pulmonary nodule (principal)
CPT/HCPCS: 71250

== ENCOUNTER 2021-11-23 20:14 | Emergency (ER) | payer OTHER, SELFPAY ==
[2021-11-23] VITALS (27 sets, daily range): BP systolic 116–146; BP diastolic 83–103; PULSE 78–112; RESP 16–26; TEMP 36.7; O2SAT 100
--- NOTE | 2021-11-23 20:15 | RT.EKG_ITS ---
APPROVED REPORT Exam: Resting ECG Reason for Exam: chest pain Patient Location: E HR:103 bpm ECG Measurements Heart Rate 103 AXIS TX 195 P 71 QRSd 97 QRS -59 QT 368 T 51 QTc 482 Conclusion Sinus tachycardia...rate> 99 Atrial premature complexes...SV complexes w/ short R-R intvls LAD, consider left anterior fascicular block...axis(240,-40), S>R II III aVF Abnrm R prog, consider ASMI or lead placement...Q >30mS, diminished R, V1-V2
--- NOTE | 2021-11-23 20:30 | DI.CT_ITS ---
Exam(s) CT CAROTID NECK CTA EXAM: CT CAROTID NECK CTA CLINICAL HISTORY: dizzy, anterior neck injury, trauma. TECHNIQUE: Imaging Protocol: Axial CT angiography was performed with multi-slice acquisition and mu lti-planar and/or 3D reconstructions. CONTRAST MATERIAL: Intravenous: Omnipaque 350 Contrast volume:70 mL COMPARISON: CT CT HEAD CERV SPINE FACIAL WO from 11/23/2021 FINDINGS: The origin of the left common carotid artery is not visualized. The examination begins above the tho racic aortic arch. CTA Neck W: Common Carotid: Right: No aneurysm, occlusion or significant stenosis. Left: No aneurysm, occlusion or significant stenosis. Mild atherosclerosis without significant steno sis. External Carotid: Right: No aneurysm, occlusion or significant stenosis. There is mild atherosclerosis at the origin o f the right external carotid artery. Left: No aneurysm, occlusion or significant stenosis. Internal Carotid: Right: No aneurysm or occlusion. There is atherosclerosis at the origin of the right internal carot id artery. There is resultant 40 percent luminal narrowing. Left: No aneurysm or occlusion. There is atherosclerosis at the origin of the left internal carotid artery. There is approximately 40 percent luminal narrowing. Vertebral Artery: Right: No aneurysm, occlusion or significant stenosis. Left: There is occlusion of the proximal left vertebral artery. The left vertebral artery is in vis ualized at about the level of C3. There is marked attenuation of the size of the distal left vertebr al artery. Lung Apices: Normal. Bones: Multilevel degenerative changes in the cervical spine. Note is again made of a comminuted dis placed fracture involving the anterior right mandible. There also again seen comminuted impacted dis placed fractures involving both mandibular condyles. There is associated soft tissue swelling of the right face. Soft Tissues: Normal. IMPRESSION: 1. Nonvisualization of portions of the proximal and mid left vertebral artery. This may be secondary to a diminutive size or occlusion. The distal vertebral artery is visualized but is severely narrow ed. RADIATION DOSE DELIVERED: 250.79mGy.cm Total DLP 250.79mGy.cm Total DLP DATA REPOSITORY: All CT scans at this facility are submitted to the National Radiology Data Registry (NRDR) Dose Index Registry (DIR) with the [employer] (ACR). RADIATION OPTIMIZATION: All CT scans at this facility use at least one of these dose optimization te chniques: automated exposure control; mA and/or kV adjustment per patient size (includes targeted exa ms where dose is matched to clinical indication); or iterative reconstruction.
--- NOTE | 2021-11-23 20:30 | DI.CT_ITS ---
Exam(s) CT CHEST/ABD/PEL W CT THORACIC LUMBAR SPINE REC EXAM: CT CHEST/ABD/PEL W and CT thoracic and lumbar spine recons CLINICAL HISTORY: trauma, chest pain, abdominal pain TECHNIQUE: Imaging Protocol: Axial computed tomography images with coronal and sagittal reformatted images were created and reviewed CONTRAST MATERIAL: Intravenous: Omnipaque 350 contrast volume:70 mL Oral: No COMPARISON: Comparison is made with prior examinations. FINDINGS: CHEST: Tracheobronchial tree: Patent where visualized. Pulmonary parenchyma: No consolidation or dominant measurable mass. No architectural distortion. Visualized thyroid gland: Unremarkable. Mediastinum and Kimberley: No dominant adenopathy or fluid collection. The esophagus is unremarkable. Pleura: No effusion or pneumothorax. Heart: The heart is not dilated. Mild coronary artery calcification. No pericardial effusion. Pulmonary arteries: The segmental and subsegmental pulmonary arteries are not adequately opacified fo r evaluation of pulmonary emboli. No central pulmonary embolus is seen. Aorta: Thoracic aorta non-dilated. Mild atherosclerosis. Lymph nodes: Within normal limits. Soft tissues: Mild gynecomastia. Bones:Within normal limits for the patient's age. Minimally displaced fractures are seen at the post erior left 10th and 11th ribs. Thoracic spine CT recons: Degenerative changes are seen in the spine. No acute fracture or subluxati on. ABDOMEN: Liver: There is fatty infiltration of the liver. No measurable mass. Portal, Superior Mesenteric, and Splenic Veins: Unremarkable. Gallbladder and Biliary Tract: Cholelithiasis. No biliary ductal dilatation. Pancreas: Normal density, no abnormal calcifications or inflammatory process. Spleen: Normal. Adrenals: No masses seen. Kidneys: Normal size, contour and axis. No radiodense stones or obstructive uropathy. No masses seen. Abdominal Aorta: Abdominal portion non-dilated. Atherosclerosis. Bowel: No obstruction or bowel wall thickening. No evidence of appendicitis. Peritoneal Cavity: No ascites, collection or mesenteric inflammatory response. No free air. Lymph Nodes: Within normal limits. Bones: Within normal limits for the patient's age. Soft Tissues: Unremarkable. Lumbar spine CT recons: There is L5 spondylolysis and grade 1 spondylolisthesis of L5 on S1. Multile mekhi degenerative changes are present throughout the lumbar spine. No acute fracture or subluxation i s present. PELVIS: Bladder: There is diffuse thickening of the wall of the urinary bladder. Reproductive Organs: Unremarkable as visualized. Lymph Nodes: Within normal limits. Bones: Within normal limits. IMPRESSION: 1. There are minimally displaced acute fractures of the posterior aspects of the left 10th and 11th r ibs. 2. No acute abdominal or pelvic injury. 3. No acute thoracic spine fracture. 4. No acute lumbar spine fracture. RADIATION DOSE DELIVERED: 961.18 mGy.cm Total DLP DATA REPOSITORY: All CT scans at this facility are submitted to the National Radiology Data Registry (NRDR) Dose Index Registry (DIR) with the [employer] (ACR). RADIATION OPTIMIZATION: All CT scans at this facility use at least one of these dose optimization te chniques: automated exposure control; mA and/or kV adjustment per patient size (includes targeted exa ms where dose is matched to clinical indication); or iterative reconstruction.
--- NOTE | 2021-11-23 20:30 | DI.CT_ITS ---
Exam(s) CT HEAD CERV SPINE FACIAL WO EXAM: CT HEAD CERV SPINE FACIAL WO CLINICAL HISTORY: Right jaw ecchymosis, facial, fall, trauma, painfu. TECHNIQUE: Imaging Protocol: Axial computed tomography images with coronal and sagittal reformatted images were created and reviewed COMPARISON: CT HEAD WITHOUT CONTRAST from 10/27/2016 FINDINGS: CT Head: Ventricles and Extra axial spaces: Normal in size and morphology for the patient's age. Hemorrhage: None. Cerebral parenchyma: No acute territorial infarct. There are subtle areas of decreased attenuation i n the white matter likely reflecting small vessel ischemic disease. Midline shift: None. Brainstem/Cerebellum: Normal. Calvarium: No evidence of a calvarial fracture. There are acute comminuted fractures involving the m andibular condyles bilaterally. The fractures are displaced and impacted. Please refer to the CT sc an of the face for further details.. Visualized Paranasal sinuses/Mastoids: Clear. Soft Tissues: Unremarkable. CT Face: Facial Bones: There are acute comminuted fractures involving the mandibular condyles bilaterally. T he fractures are displaced and impacted. There is also a comminuted overriding displaced fracture in volving the right aspect of the right anterior mandible. Sinuses and Mastoids: The visualized sinuses and mastoid air cells are clear. No fluid levels are s een. There is rightward deviation of the nasal septum. Globes, extraocular muscles, optic nerves and retrobulbar fat: Normal. Upper aerodigestive tract: Normal. Mandible and bilateral temporomandibular joints: Please see the above section entitled ???facial bon es???. Soft tissues: There is soft tissue swelling overlying the right mandible. CT Cervical Spine: Bones: No acute fracture or subluxation. Moderate degenerative changes are seen throughout the cervic al spine. There is straightening of the normal cervical lordosis. This may be degenerative, related to muscle spasm or patient positioning. 2-3 mm anterolisthesis of C2 on C3, C3 on C4 and C4 and C5 is noted. This is likely degenerative. Soft Tissues: Atherosclerosis is present. Lung Apices: Clear. IMPRESSION: 1. No acute intracranial process or calvarial fracture. 2. No acute fracture or subluxation in the cervical spine. 3. Acute, comminuted, displaced and impacted fractures involving both mandibular condyles. 4. Acute, displaced and comminuted fracture involving the right anterior mandible. 5. Soft tissue swelling over the right face and mandible. RADIATION DOSE DELIVERED: 1,942.88mGy.cm Total DLP DATA REPOSITORY: All CT scans at this facility are submitted to the National Radiology Data Registry (NRDR) Dose Index Registry (DIR) with the [employer] (ACR). RADIATION OPTIMIZATION: All CT scans at this facility use at least one of these dose optimization te chniques: automated exposure control; mA and/or kV adjustment per patient size (includes targeted exa ms where dose is matched to clinical indication); or iterative reconstruction.
[2021-11-23 21:17] LABS: BE (Venous) -2 mmol/L (-2-3); HCO3 (Venous) 23 mmol/L (23-28); O2 Sat (Venous) 75 %; TCO2 (Venous) 21 mmol/L (24-29); pCO2 (Venous) 35 mmHg (41-51); pH (Venous) 7.43 (7.31-7.41); pO2 (Venous) 40 mmHg
[2021-11-23] MEDS: Omnipaque 350 MG/ML 100 ML BTL IJ (21:19)
[2021-11-23] MEDS: Normal Saline 1,000 ML 1000 ML IV (21:29)
--- NOTE | 2021-11-23 21:29 | DI.VRAD_ITS ---
PROCEDURE INFORMATION: Exam: CT Head Without Contrast Exam date and time: 11/23/2021 9:04 PM Age: 56 years old Clinical indication: Other: Trauma, fall, other: Trauma, right jaw ecchymosis, facial, fall, trauma TECHNIQUE: Imaging protocol: Computed tomography of the head without contrast. COMPARISON: CT HEAD WITHOUT CONTRAST 10/27/2016 6:01 PM FINDINGS: Brain: Periventricular and subcortical white matter areas of hypoattenuation, likely chronic small vessel ischemic change, demyelination, or gliosis. No intracranial mass, acute hemorrhage, or acute infarction. Cerebral ventricles: No ventriculomegaly. Paranasal sinuses: Visualized sinuses are unremarkable. No fluid levels. Mastoid air cells: Normal as visualized. Nasal cavity: Rightward deviation of the bony nasal septum. Bones/joints: Acute, displaced, multi fragmentary fractures of the mandibular condyles bilaterally. Soft tissues: Unremarkable. IMPRESSION: 1. No acute intracranial abnormality. 2. Acute, displaced, multi fragmentary fractures of the mandibular condyles bilaterally. PROCEDURE INFORMATION: Exam: CT Maxillofacial Without Contrast Exam date and time: 11/23/2021 9:04 PM Age: 56 years old Clinical indication: Other: Trauma, fall, other: Trauma, right jaw ecchymosis, facial, fall, trauma TECHNIQUE: Imaging protocol: Computed tomography of the of the face without contrast. COMPARISON: CT HEAD WITHOUT CONTRAST 10/27/2016 6:01 PM FINDINGS: Orbital cavities: Orbits are normal. Globes are unremarkable. Bones/joints: Acute, displaced, multi fragmentary fracture of the right anterior mandible. Acute, displaced, multi fragmentary fractures of the mandibular condyles bilaterally. Paranasal sinuses: Normal. No air-fluid levels. Soft tissues: Anterior and right facial soft tissue swelling/contusions. Vasculature: Atherosclerotic vascular disease. Nasal cavity: Rightward deviation of the bony nasal septum. IMPRESSION: 1. Acute, displaced, multi fragmentary fracture of the right anterior mandible. 2. Acute, displaced, multi fragmentary fractures of the mandibular condyles bilaterally. 3. Anterior and right facial soft tissue swelling/contusions. PROCEDURE INFORMATION: Exam: CT Cervical Spine Without Contrast Exam date and time: 11/23/2021 9:04 PM Age: 56 years old Clinical indication: Other: Trauma, fall, other: Trauma, right jaw ecchymosis, facial, fall, trauma TECHNIQUE: Imaging protocol: Computed tomography of the cervical spine without contrast. COMPARISON: CT CHEST WO 04/01/2021 1:16 PM FINDINGS: Bones/joints: Grade 1 degenerative anterolisthesis of C2 on C3, C3 on C4 and C4 on C5. Moderate degenerative disc disease at the C3-C4 through C7-T1 levels, manifest by disc space narrowing and osteophyte formation. Moderate multilevel bilateral facet and uncovertebral arthropathy. No acute fracture. Right C2-C3, left C3-C4, left C4-C5, bilateral C5-C6, and left C6-C7 neural foraminal narrowing. Lungs: Lung apices are normal. Vasculature: Atherosclerotic vascular disease. Soft tissues: Normal. IMPRESSION: No acute fracture. Dictated and Authenticated by: Caesar Mcnamara MD. Ordering:MARIA C Chavez MD
[2021-11-23 21:33] LABS: INR 1.1 (0.9-1.1); Prothrombin Time 10.9 sec (9.3-11.0)
--- NOTE | 2021-11-23 21:42 | DI.VRAD_ITS ---
PROCEDURE INFORMATION: Exam: CTA Neck With Contrast Exam date and time: 11/23/2021 9:13 PM Age: 56 years old Clinical indication: Other: Dizzy, anterior neck injury, trauma TECHNIQUE: Imaging protocol: Computed tomographic angiography of the neck with contrast. 3D rendering (Not supervised by radiologist): MIP and/or 3D reconstructed images were created by the technologist. Contrast material: 350; Contrast volume: 70 ml; Contrast route: INTRAVENOUS (IV); COMPARISON: CT HEAD CERV SPINE FACIAL WO 11/23/2021 9:04 PM FINDINGS: Right common carotid artery: No stenosis. No dissection or occlusion. Right internal carotid artery: Mixed atherosclerotic plaque within the proximal right ICA, causing approximately 40% luminal narrowing (series 5, image 250). Right external carotid artery: No occlusion or stenosis of the origin. Left common carotid artery: Mixed atherosclerotic plaque within the mid and distal left common carotid artery, causing less than 30% luminal narrowing. Left internal carotid artery: Mixed atherosclerotic plaque within the proximal left ICA, causing approximately 40% luminal narrowing (series 5, image 225). Left external carotid artery: No occlusion or stenosis of the origin. Right vertebral artery: Dominant right vertebral artery, which is widely patent. Left vertebral artery: Several segments of the left vertebral artery are not visualized, possibly secondary to diminutive size and or narrowing, including the proximal and mid segments, as well as the segment at the level of the foramen magnum (series 5, images 297-308). Soft tissues: Normal. No significant soft tissue swelling. Bones/joints: Multilevel degenerative disc disease, manifest by disc space narrowing and osteophyte formation. Grade 1 degenerative anterolisthesis of C2 on C3, C3 on C4, and C4 on C5. Multilevel bilateral facet and uncovertebral arthropathy. IMPRESSION: Several segments of the left vertebral artery are not visualized, possibly secondary to diminutive size and or narrowing, including the proximal and mid segments, as well as the segment at the level of the foramen magnum (series 5, images 297-308). REFERENCES: NASCET CRITERIA. The degree of stenosis in the cervical segment of the internal carotid artery is based on NASCET criteria. Normal is no stenosis. Mild is less than 50% stenosis. Moderate is 50-69% stenosis. Severe is 70% to 99% stenosis. Total occlusion is no detectable patent lumen. Dictated and Authenticated by: Caesar Mcnamara MD. Ordering:MARIA C Chavez MD
[2021-11-23 21:43] LABS: ALT 45 U/L (16-63); AST 82 U/L (15-37); Albumin 3.8 g/dL (3.4-5.0); Alkaline Phosphatase 44 U/L (46-116); Anion Gap 15.6 mmol/L (3-11); BUN 28 mg/dL (7-18); Bilirubin, Total 1.4 mg/dL (0.2-1.0); CO2 23.4 mmol/L (21.0-32.0); CREATININE 2.4 mg/dL (0.70-1.30); Calcium 9.2 mg/dL (8.5-10.1); Chloride 99 mmol/L (98-107); Estimated GFR 30.51 (mL/min/1.73m2); Glucose 208 mg/dL (74-106); Lipase 540 U/L (73-393); Magnesium 1.2 mg/dL (1.8-2.4); Potassium 3.5 mmol/L (3.5-5.1); Sodium 138 mmol/L (136-145); TSH 15.02 uIU/mL (0.36-3.74); Total Protein 7.8 g/dL (6.4-8.2); Troponin I < 50 ng/L (<or=60)
[2021-11-23] MEDS: MAGNESIUM SULFATE 2 GM/50 ML BAG IVPB (21:55)
[2021-11-23] MEDS: fentaNYL 100 MCG/2 ML VIAL 50 MCG IVP (21:56)
--- NOTE | 2021-11-23 22:14 | DI.VRAD_ITS ---
PROCEDURE INFORMATION: Exam: CT Chest With Contrast; Diagnostic Exam date and time: 11/23/2021 9:20 PM Age: 56 years old Clinical indication: Injury or trauma; Fall; Generalized; Blunt trauma (contusions or hematomas); Injury date: 11/23/21; Injury details: Trauma, chest pain, abdominal pain TECHNIQUE: Imaging protocol: Diagnostic computed tomography of the chest with contrast. Radiation optimization: All CT scans at this facility use at least one of these dose optimization techniques: automated exposure control; mA and/or kV adjustment per patient size (includes targeted exams where dose is matched to clinical indication); or iterative reconstruction. Contrast material: OMNI 350; Contrast volume: 70 ml; Contrast route: INTRAVENOUS (IV); COMPARISON: CT CHEST WO 04/01/2021 1:16 PM FINDINGS: Trachea: There is redemonstration of a small tracheal diverticulum at the right posterior aspect (image 13, series 3). Lungs: No significant consolidation. Pleural spaces: No pneumothorax. No pleural effusion. Heart: No cardiomegaly. No pericardial effusion. Lymph nodes: No enlarged lymph nodes. Vasculature: No aortic aneurysm. Bones/joints: There are minimally displaced fractures involving the left posterior 10th and 11th rib. A subacute nondisplaced rib fracture is seen at the lateral aspect of the 10th rib. Soft tissues: Unremarkable. IMPRESSION: 1. Minimally displaced acute fractures of the left 10th and 11th ribs and subacute fracture of the left 10th rib. 2. No evidence of pulmonary contusion or consolidation. PROCEDURE INFORMATION: Exam: CT Abdomen And Pelvis With Contrast Exam date and time: 11/23/2021 9:20 PM Age: 56 years old Clinical indication: Injury or trauma; Fall; Generalized; Blunt trauma (contusions or hematomas); Injury date: 11/23/21; Injury details: Trauma, chest pain, abdominal pain TECHNIQUE: Imaging protocol: Computed tomography of the abdomen and pelvis with contrast. Radiation optimization: All CT scans at this facility use at least one of these dose optimization techniques: automated exposure control; mA and/or kV adjustment per patient size (includes targeted exams where dose is matched to clinical indication); or iterative reconstruction. Contrast material: OMNI 350; Contrast volume: 70 ml; Contrast route: INTRAVENOUS (IV); COMPARISON: CT CHEST/ABD/PEL WO 09/01/2020 9:00 PM FINDINGS: Liver: Unremarkable liver. No mass identified. Gallbladder and bile ducts: There are small calcified stones layering posteriorly in the gallbladder. No ductal dilation. Pancreas: No ductal dilation. No pancreatic lesion seen. Spleen: The spleen is unremarkable. No splenomegaly. Adrenal glands: No mass. Kidneys and ureters: No hydronephrosis. Stomach and bowel: No bowel obstruction. No mucosal thickening. Appendix: No evidence of appendicitis. Intraperitoneal space: No free air. No significant fluid collection. Vasculature: No abdominal aortic aneurysm. Lymph nodes: No enlarged lymph nodes. Urinary bladder: Unremarkable as visualized. Reproductive: Unremarkable as visualized. Bones/joints: No acute fracture. Bilateral pars interarticularis defects are seen in the L5 vertebral body with associated grade 1 anterolisthesis of L5 on S1. Soft tissues: Unremarkable. IMPRESSION: No evidence of acute traumatic injury in the abdomen and pelvis. Dictated and Authenticated by: Parisa Miller MD. Ordering:MARIA C Chavez MD
[2021-11-23 22:17] LABS: Abs Immature Grans 0.01 10^3/uL (0.0-0.06); Absolute Basophil Count 0.02 10^3/uL (0.0-0.2); Absolute Lymphocyte Count 0.49 10^3/uL (1.2-3.4); Absolute Neutrophil Count 3.35 10^3/uL (1.2-6.7); Basophils % 0.4; HCT 24.1 % (40.0-50.0); HGB 8.5 g/dL (13.5-17.5); Immature Grans % 0.2; MCH 37.1 pg (27.0-33.0); MCHC 35.3 % (32.0-36.0); MCV 105 fL (80-95); MPV 9.8 fL (8.0-11.0); Monocytes % 13.4; Platelet Count 103 10^3/uL (130-400); RBC 2.29 10^6/uL (4.36-5.78); RDW 14.6 % (11.8-14.1); WBC 4.47 10^3/uL (4.4-10.8)
--- NOTE | 2021-11-23 22:23 | DI.VRAD_ITS ---
PROCEDURE INFORMATION: Exam: CT Thoracic Spine Without Contrast Exam date and time: 11/23/2021 9:20 PM Age: 56 years old Clinical indication: Injury or trauma; Fall; Blunt trauma (contusions or hematomas); Injury date: 11/23/21; Injury details: Trauma, chest pain, abdominal pain TECHNIQUE: Imaging protocol: Computed tomography of the thoracic spine without contrast. Radiation optimization: All CT scans at this facility use at least one of these dose optimization techniques: automated exposure control; mA and/or kV adjustment per patient size (includes targeted exams where dose is matched to clinical indication); or iterative reconstruction. COMPARISON: CT HEAD CERV SPINE FACIAL WO 11/23/2021 9:04 PM FINDINGS: Bones/joints: No acute thoracic spine fracture. Bilateral neural foraminal narrowing noted at the T11-T12 level secondary to prominent facet arthropathy and mild disc bulging. Soft tissues: Unremarkable. IMPRESSION: 1. No thoracic spine fracture. 2. Left rib fractures noted, better evaluated on the concurrent CT of the chest. PROCEDURE INFORMATION: Exam: CT Lumbar Spine Without Contrast Exam date and time: 11/23/2021 9:20 PM Age: 56 years old Clinical indication: Injury or trauma; Fall; Blunt trauma (contusions or hematomas); Injury date: 11/23/21; Injury details: Trauma, chest pain, abdominal pain TECHNIQUE: Imaging protocol: Computed tomography of the lumbar spine without contrast. Radiation optimization: All CT scans at this facility use at least one of these dose optimization techniques: automated exposure control; mA and/or kV adjustment per patient size (includes targeted exams where dose is matched to clinical indication); or iterative reconstruction. COMPARISON: CT CHEST/ABD/PEL WO 09/01/2020 9:00 PM FINDINGS: Bones/joints: Multilevel degenerative disc disease noted with bilateral neural foraminal narrowing most prominent at L5-S1. Bilateral pars interarticularis defects are seen in the L5 vertebral body with associated grade 1 anterolisthesis of L5 on S1. Soft tissues: Unremarkable. IMPRESSION: 1. No acute lumbar spine fracture. 2. Multilevel degenerative changes as described. Dictated and Authenticated by: Parisa Miller MD. Ordering:MARIA C Chavez MD
[2021-11-23 22:40] LABS: Macrocytosis 1+
[2021-11-23 23:40] LABS: Bilirubin Small (Negative); Blood Small (Negative); Clarity Clear (Clear); Glucose Negative (Negative); Ketones Trace mg/dL (Negative); Leukocyte Esterase Negative (Negative); Nitrite Negative (Negative); Urobilinogen 0.2 EU/dL (Up TO 0.2)
[2021-11-23 23:47] LABS: Bacteria Rare HPF (Negative); C & S Indicated? No; Casts 0-2 Hyaline LPF (Negative); Crystals Few Amorphous HPF (Negative); Epithelial Cells Few HPF (Negative); Mucus Negative (Negative); RBC 0-2 HPF (0-2); WBC 0-2 HPF (0-5)
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
[2021-11-23 23:57] LABS: Troponin I < 50 ng/L (<or=60)
[2021-11-24] MEDS: PIPERACILLIN/TAZO 3.375 GM in Normal Saline 50 ML IVPB (00:34)
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
[2021-11-24] MEDS: Tetanus & Diphtheria Tox,ADULT 0.5 ML VIAL IM (00:58)
[2021-11-24 01:41] VITALS: BP 147/95; PULSE 77; RESP 15; TEMP 36.8; O2SAT 97
[2021-11-24 01:56] LABS: FREE T4 0.79 ng/dL (0.76-1.46)
[2021-11-24] MEDS: Amox. 875/Clav. 125, 2 TABS/BTL 1 TAB PO (06:38)
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
== END 2021-11-24 07:09 | disposition left against medical advice (07) ==
PROVIDERS: Physician Assistant; Emergency Provider Student in an Organized Health Care Education/Training Program; PCP Family Medicine
DX: S02.609A Fracture of mandible, unspecified, initial encounter for closed fracture (principal); S01.81XA Laceration without foreign body of other part of head, initial encounter; E83.42 Hypomagnesemia; D64.9 Anemia, unspecified; D69.6 Thrombocytopenia, unspecified; R94.6 Abnormal results of thyroid function studies; F17.210 Nicotine dependence, cigarettes, uncomplicated; Z53.20 Procedure and treatment not carried out because of patient's decision for unspecified reasons; I10 Essential (primary) hypertension; S40.011A Contusion of right shoulder, initial encounter; S10.93XA Contusion of unspecified part of neck, initial encounter; V27.4XXA Motorcycle driver injured in collision with fixed or stationary object in traffic accident, initial encounter; Z23 Encounter for immunization
CPT/HCPCS: 12013; 70498; 74177; 80053; 82805; 83690; 90471; 93005; 96365; 96366; 96367; 96375; 99285; 70450; 70486; 71260; 72125; 81003; 81015; 82140; 83735; 84439; 84443; 84484; 85025; 85610; 93010; 99284; J2543; J3010; J3490

== ENCOUNTER 2022-02-27 03:13 | Outpatient (CLI) | payer OTHER, SELFPAY ==
[2022-02-27 12:46] LABS: ALT 13 U/L (16-63); AST 38 U/L (15-37); Albumin 4.2 g/dL (3.4-5.0); Alkaline Phosphatase 59 U/L (46-116); Bilirubin, Direct 0.1 mg/dL (0.0-0.2); Bilirubin, Total 0.5 mg/dL (0.2-1.0); TSH (W/Ref FT4) 15.26 uIU/mL (0.36-3.74); Total Protein 9.3 g/dL (6.4-8.2)
[2022-02-27 13:05] LABS: FREE T4 0.84 ng/dL (0.76-1.46)
== END 2022-02-27 03:14 | disposition home or self-care (01) ==
LOC: LOS 03:13
PROVIDERS: PCP Family Medicine; Visit Provider Family Medicine
DX: G72.89 Other specified myopathies (principal); E03.9 Hypothyroidism, unspecified
CPT/HCPCS: 36415; 80076; 84439; 84443

== ENCOUNTER 2022-12-06 03:48 | Outpatient (CLI) | payer OTHER, SELFPAY ==
[2022-12-08 12:21] LABS: Albumin 50.5 % (55.8-66.1); Albumin g/dL 3.8 g/dL (3.6-5.2); Comment (See Note); Total Protein 7.5 g/dL (6.3-8.2)
[2023-01-29 09:52] LABS: Immunotyping, Serum (See Note)
== END 2022-12-06 03:49 | disposition home or self-care (01) ==
LOC: LOS 03:48
PROVIDERS: PCP Family Medicine; Visit Provider Family Medicine
DX: R77.9 Abnormality of plasma protein, unspecified (principal)
CPT/HCPCS: 36415; 84165; 86320

== ENCOUNTER → 2023-01-11 03:24 | Outpatient (CLI) | payer OTHER, MEDICARE, SELFPAY ==
[2023-01-11 12:44] LABS: Abs Immature Grans 0.01 10^3/uL (0.0-0.06); Absolute Basophil Count 0.05 10^3/uL (0.0-0.2); Absolute Eosinophil Count 0.21 10^3/uL (0.0-0.7); Absolute Lymphocyte Count 1.34 10^3/uL (1.2-3.4); Absolute Monocyte Count 0.57 10^3/uL (0.1-0.8); Absolute Neutrophil Count 3.38 10^3/uL (1.2-6.7); Basophils % 0.9; Eosinophils % 3.8; HCT 31.3 % (40.0-50.0); HGB 10.2 g/dL (13.5-17.5); Immature Grans % 0.2; Lymphocytes % 24.1; MCH 32.9 pg (27.0-33.0); MCHC 32.6 % (32.0-36.0); MCV 101 fL (80-95); MPV 9.1 fL (8.0-11.0); Monocytes % 10.3; Neutrophils % 60.7; Platelet Count 281 10^3/uL (130-400); RDW 13.9 % (11.8-14.1); RDW-SD 51.8 fL; WBC 5.56 10^3/uL (4.4-10.8)
[2023-01-11] MEDS: Barium Sulfate 2% W/V-Berry Smoothie 450 ML BTL 900 ML PO (12:49)
[2023-01-11 13:07] LABS: ALT 18 U/L (16-63); AST 87 U/L (15-37); Albumin 2.9 g/dL (3.4-5.0); Alkaline Phosphatase 55 U/L (46-116); Anion Gap 10.9 mmol/L (3-11); BUN 30 mg/dL (7-18); Bilirubin, Total 0.3 mg/dL (0.2-1.0); CO2 21.1 mmol/L (21.0-32.0); CREATININE 2.1 mg/dL (0.70-1.30); Calcium 8.8 mg/dL (8.5-10.1); Chloride 102 mmol/L (98-107); Estimated GFR 35.59 (mL/min/1.73m2); Glucose 90 mg/dL (74-106); Sodium 134 mmol/L (136-145); TSH (W/Ref FT4) 13.94 uIU/mL (0.36-3.74); Total Protein 7.7 g/dL (6.4-8.2)
[2023-01-11 13:37] LABS: FREE T4 1.01 ng/dL (0.76-1.46)
[2023-01-11] MEDS: Normal Saline - Diluent 50 ML VIAL IJ (14:43)
[2023-01-11] MEDS: Omnipaque 350 MG/ML 100 ML BTL IJ (14:47)
[2023-01-11] MEDS: Normal Saline Flush 10 ML SYR IVP (14:48)
--- NOTE | 2023-01-11 14:49 | DI.CT_ITS ---
Exam(s) CT ABDOMEN PELVIS W EXAM: CT ABDOMEN PELVIS W CLINICAL HISTORY: abd pain/signficant weight loss,ALCOHOLISM,R10.13,R63.4,Z72.0. TECHNIQUE: Imaging Protocol: Axial computed tomography images with coronal and sagittal reformatted images were created and reviewed CONTRAST MATERIAL: Intravenous: Omnipaque 350 Contrast volume:100 ml Oral: yes / COMPARISON: CT CT THORACIC LUMBAR SPINE REC from 11/23/[address] CHEST/ABD/PEL W from 11/23/2021 FINDINGS: ABDOMEN and PELVIS: Lung Bases: Normal where visualized. Liver: Normal density. Appears improved from prior. No measurable mass. Gallbladder and biliary tract: Tiny stones noted in the dependent portion of the gallbladder. No wal l thickening no biliary dilation. Pancreas: Pancreas is noted to be somewhat atrophic on the prior exam. There are now multiple locula marty fluid carotid collections some stranding in the fat, consistent with multiple pseudocysts. This is a cyst in the head of the pancreas measures 5.3 x 2.8 cm. This pseudocyst in the region of the ta il of the pancreas measures 8.1 x 3.8 cm. There is a loculation seen inferiorly to the tail measurin g 5.9 x 2 cm. Loculation superior to the tail of the pancreas measures 4.3 x 4 cm. No other smaller loculations are seen. No mass is seen but would be difficult to exclude given the multicentricity o f the pseudocyst. Spleen: Upper limits of normal in size at 12.6 cm in length. Kidneys: Normal size, contour and axis. No radiodense stones. No obstructive uropathy. No suspicious masses seen. Adrenal glands: No masses seen. Vasculature: Abdominal aorta non-dilated. Soft tissues: Unremarkable. Bladder: Nearly empty. No calculi. Bowel: No obstruction. No bowel wall thickening. Appendix normal. Peritoneal cavity: Stranding in the mesenteric fat anterior to the pancreas. Multiple small mesente gaudencio lymph nodes, presumably reactive. No ascites. Bones: Old L5 spondylolysis and mild L5-S1 spondylolisthesis. Degenerative changes. Reproductive organs: Within normal limits. IMPRESSION:: Pancreatitis with multiple pseudocysts. Not present on the prior exam. Cholelithiasis. No evidence of acute cholecystitis. Findings discussed with Dr. Mattson. RADIATION DOSE DELIVERED: Total DLP DATA REPOSITORY: All CT scans at this facility are submitted to the National Radiology Data Registry (NRDR) Dose Index Registry (DIR) with the [employer] ([employer]). RADIATION OPTIMIZATION: All CT scans at this facility use at least one of these dose optimization te chniques: automated exposure control; mA and/or kV adjustment per patient size (includes targeted exa ms where dose is matched to clinical indication); or iterative reconstruction.
== END ==
PROVIDERS: PCP Family Medicine; Visit Provider Family Medicine
DX: K86.3 Pseudocyst of pancreas (principal); K80.80 Other cholelithiasis without obstruction
CPT/HCPCS: 80053; 74177; 84439; 84443; 85025; J3490

== ENCOUNTER 2024-03-26 04:20 | Outpatient (CLI) | payer MEDICARE, SELFPAY ==
[2024-03-26 12:33] LABS: Anion Gap 11.1 mmol/L (3-11); BUN 20 mg/dL (7-18); CO2 23.9 mmol/L (21.0-32.0); CREATININE 1.9 mg/dL (0.70-1.30); Calcium 8.8 mg/dL (8.5-10.1); Chloride 106 mmol/L (98-107); Estimated GFR 39.64 (mL/min/1.73m2); Glucose 89 mg/dL (74-106); Potassium 3.9 mmol/L (3.5-5.1); Sodium 141 mmol/L (136-145); TSH (W/Ref FT4) 16.12 uIU/mL (0.36-3.74)
[2024-03-26 12:50] LABS: FREE T4 0.67 ng/dL (0.76-1.46)
[2024-03-27 09:48] LABS: PSA, Screening 0.8 ng/mL (<=4.5)
== END 2024-03-26 04:21 | disposition home or self-care (01) ==
LOC: LOS 04:26
PROVIDERS: PCP Family Medicine; Visit Provider Family Medicine
DX: Z12.5 Encounter for screening for malignant neoplasm of prostate (principal); E03.9 Hypothyroidism, unspecified; E11.9 Type 2 diabetes mellitus without complications; E87.1 Hypo-osmolality and hyponatremia
CPT/HCPCS: 36415; 80048; 84153; 83036; 84439; 84443